=== PATIENT | female | born 1980 | race Caucasian/White ===

== ENCOUNTER → 2017-03-14 | Outpatient (CLI) | payer OTHER ==
[~2017-03-14] MED LIST: IBUP-1050 PO; LEVO125T72 PO; LEVO137T3 PO; OXYC-57 PO
[2017-03-14 10:05] LABS: THYROID STIMULATING HORMONE 0.012 uIu/ml (0.300-4.500)
== END | disposition home or self-care (01) ==
LOC: C.LAB1850 06:59
PROVIDERS: ATTEND Internal Medicine Endocrinology, Diabetes & Metabolism
DX: E89.0 Postprocedural hypothyroidism (principal)

== ENCOUNTER → 2017-04-10 | Outpatient (CLI) | payer OTHER ==
[~2017-04-10] MED LIST changes: -OXYC-57 PO
[2017-04-10 09:58] LABS: THYROID STIMULATING HORMONE 0.509 uIu/ml (0.300-4.500)
== END | disposition home or self-care (01) ==
LOC: C.LAB1850 07:11
PROVIDERS: ATTEND Internal Medicine Endocrinology, Diabetes & Metabolism
DX: E89.0 Postprocedural hypothyroidism (principal)

== ENCOUNTER 2017-05-29 11:10 | Emergency (ER) | payer OTHER ==
[~2017-05-29] VITALS: Ht 162.6 cm; Wt 69.3 kg
[~2017-05-29 11:10] MED LIST changes: -LEVO125T72 PO
[2017-05-29 11:12] VITALS: TEMP 36.7; Ht 162.6 cm; Wt 69.3 kg
[2017-05-29] MEDS ORDERED: LEVO125T72 PO (11:26)
[2017-05-29] MEDS ORDERED: DiphenhydrAMINE HCL 50 MG/ML VIAL IV STA (11:57)
[2017-05-29] MEDS ORDERED: SODIUM CHLORIDE 0.9% 1000ML 1,000 ML IV STA (11:57)
[2017-05-29] MEDS ORDERED: KETOROLAC TROMETHAMINE 30 MG/ML VIAL IV STA (11:57)
[2017-05-29] MEDS ORDERED: PROCHLORPERAZINE 5 MG/ML 2 ML VIAL IV STA (11:57)
--- NOTE | 2017-05-29 12:46 | EMERGENCY ROOM VISIT NOTE ---
History Report prepared by Isrrael: Crissy Monahan Under the Supervision of: Dr. Josh Luque M.D. First contact with patient: 11:31 Chief Complaint: HEAD PAIN Stated Complaint: HEAD PAIN,LEFT EYE BLURRY History of Present Illness The patient is a 37 year old female who presents to the Emergency Room with complaints of intermittent head pain for the past couple of days. The patient has a history of migraine headaches. She had a migraine headache with aura a couple of days ago that she states was just like her typical migraine headaches. Two days ago she had pain in the back of her head that was worse with palpation. Yesterday she had sharp pain on the side of her head that has resolved. She states that her vision is "OK but something feels off." She notes some feeling of pressure in her head. The patient denies any recent trauma or injury to her head. She denies cough, fever, chills, diarrhea, and chance of . She does not take any estrogen. She denies any recent visits to the chiropractor. She follows-up with her PCP for her migraines. She was told that she did not need to see a neurologist, because she does not have migraines often enough. The patient has never had any imaging of her head. Source of History: patient Onset: a couple of days ago Position: head Symptom Intensity: mild Quality: pressure, sharp Timing: intermittent Associated Symptoms: No fevers, No chills, No cough, No diarrhea Review of Systems See HPI for pertinent positives & negatives. A total of 10 systems reviewed and were otherwise negative. Past Medical & Surgical Medical Problems: (1) Migraine headache Family History Cancer Diabetes mellitus Hypertension Social History Smoking Status: Former Smoker Smokeless Tobacco Use: No Alcohol Use: occasionally Marital Status: Housing Status: lives with family Occupation Status: employed Current/Historical Medications Scheduled Ibuprofen (Advil), 400 MG PO PRN Levothyroxine Sodium (Synthroid), 125 MCG PO DAILY Allergies Coded Allergies: No Known Allergies (Unverified , 05/29/17) Physical Exam Vital Signs Date Time Temp Pulse Resp B/P (MAP) Pulse Ox O2 Delivery O2 Flow Rate FiO2 05/29/17 13:10 75 16 122/79 99 Room Air 05/29/17 11:12 36.7 87 16 156/81 97 Room Air Physical Exam GENERAL: Patient is a healthy-appearing well-nourished 37 year old female. HEAD: Normocephalic atraumatic EYES: Ocular movements intact pupils equal and react to light OROPHARYNX mucous membranes are moist no exudates present no erythema or edema present NECK: Supple no nuchal rigidity, no evidence of meningitis or encephalitis on exam CHEST: Good equal expansion LUNGS: Clear and equal to auscultation CARDIAC: Normal S1 and S2 ABDOMEN: Soft nontender no guarding BACK: No CVA tenderness EXTREMITIES: No pain upon palpation normal muscle strength in all groups no clubbing cyanosis or edema NEURO: Patient is following commands and answering questions appropriately. Alert and oriented x3 Cranial Nerves 2-12 grossly intact Medical Decision & Procedures ER Provider Diagnostic Interpretation: Radiology results as stated below per my review and radiologist interpretation: HEAD WITHOUT CONTRAST (CT) CLINICAL HISTORY: 37 years-old Female presenting with left-sided blurred vision and head pain. TECHNIQUE: Multidetector CT imaging of the head was performed without the use of intravenous contrast. IV contrast: None. A dose lowering technique was used consistent with the principles of ALARA (as low as reasonably achievable). COMPARISON: None. CT DOSE (mGy.cm): The estimated cumulative dose is 537.48 mGy.cm. 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 Ventricles and sulci normal in size. Brain parenchyma normal in appearance with preserved larsen-white differentiation. No mass effect or midline shift. No hemorrhage or acute territorial infarct. No extra-axial fluid collection. Paranasal sinuses and mastoid air cells clear. Calvarium intact. IMPRESSION: 1. No acute intracranial pathology. Electronically signed by: Tae Wu M.D. 05/29/2017 1:11 PM Dictated Date/Time: 05/29/2017 1:08 PM Medications Administered Medications (Trade) Dose Ordered Sig/Marleny Route Start Time Stop Time Status Last Admin Dose Admin Sodium Chloride 1,000 ml @ 999 mls/hr Q1H1M STAT IV 05/29/17 11:57 05/29/17 12:57 DC 05/29/17 11:57 999 MLS/HR Ketorolac Tromethamine (Toradol Inj) 30 mg NOW STAT IV 05/29/17 11:57 05/29/17 11:59 DC 05/29/17 12:08 30 MG Prochlorperazine Edisylate (Compazine Inj) 10 mg NOW STAT IV 05/29/17 11:57 05/29/17 11:59 DC 05/29/17 12:08 10 MG Diphenhydramine HCl (Benadryl Inj) 50 mg NOW STAT IV 05/29/17 11:57 05/29/17 11:59 DC 05/29/17 12:07 50 MG ED Course 1135: Past medical records reviewed. The patient was evaluated in room C1B. A complete history and physical examination was performed. 1157: Benadryl 50 mg IV, Compazine 10 mg IV, Toradol 30 mg IV, NSS 1000 ml @ 999 mls/hr IV 1321: I reassessed the patient at this time. She is feeling better and resting comfortably. I discussed the results and treatment plan with the patient. I answered all pertaining questions that she had. She expressed understanding and verbalized agreement. The patient will be discharged home. Medical Decision Etiologies such as migraine headache, meningitis, sinusitis, CO exposure, ICH, SAH, infection, tumor, headache, sinus thrombosis, arterial dissection, as well as others were entertained. This is a 37-year-old female who presents emergency department complaining of a migraine headache. The patient reports she has had migraines like this in the past. I will note she is afebrile and has no evidence of meningitis or encephalitis on examination. For this reason I felt that the patient could be conservatively treated. She was sent for a CAT scan of the head as she has never had imaging of her head. For this reason IV was established, the patient was given normal saline bolus, Toradol, Compazine, Benadryl. Repeat examination revealed improvement patient's symptoms. Medication Reconcilliation Current Medication List: was personally reviewed by me Blood Pressure Screening Patient's blood pressure: Elevated blood pressure Blood pressure disposition: Referred to PCP Impression Primary Impression: Headache Scribe Attestation The scribe's documentation has been prepared under my direction and personally reviewed by me in its entirety. I confirm that the note above accurately reflects all work, treatment, procedures, and medical decision making performed by me. Departure Information Dispostion Home / Self-Care Referrals Charley Mena M.D. (PCP) Forms HOME CARE DOCUMENTATION FORM, IMPORTANT VISIT INFORMATION, WORK / SCHOOL INSTRUCTIONS Patient Instructions ED Headache Migraine, Headache Pain, My [facility] Additional Instructions You were found to have an elevated blood pressure today (>120 sytolic or >90 diastolic). Per medicare guidelines, you need to follow up with this blood pressure screening with your Primary Care Physician (PCP). For a new PCP call [phone]. You have been examined and treated today on an emergency basis only. This is not a substitute for, or an effort to provide, complete comprehensive medical care. It is impossible to recognize and treat all injuries or illnesses in a single emergency department visit. It is therefore important that you follow up closely with Dr Mena. Call as soon as possible for an appointment. Thank you for your time and consideration. I look forward to speaking with you again soon. Please don't hesitate to call us if you have any questions. Problem Qualifiers Primary Impression: Headache Headache type: unspecified Headache chronicity pattern: acute headache Intractability: not intractable Qualified Codes: R51 - Headache
[2017-05-29 13:10] VITALS: BP 122/79; PULSE 75; O2SAT 99
--- NOTE | 2017-05-29 13:12 | DIAGNOSTIC IMAGING REPORT ---
HEAD WITHOUT CONTRAST (CT) CLINICAL HISTORY: 37 years-old Female presenting with left-sided blurred vision and head pain. TECHNIQUE: Multidetector CT imaging of the head was performed without the use of intravenous contrast. IV contrast: None. A dose lowering technique was used consistent with the principles of ALARA (as low as reasonably achievable). COMPARISON: None. CT DOSE (mGy.cm): The estimated cumulative dose is 537.48 mGy.cm. 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 Ventricles and sulci normal in size. Brain parenchyma normal in appearance with preserved larsen-white differentiation. No mass effect or midline shift. No hemorrhage or acute territorial infarct. No extra-axial fluid collection. Paranasal sinuses and mastoid air cells clear. Calvarium intact. IMPRESSION: 1. No acute intracranial pathology. Electronically signed by: Tae Wu M.D. 05/29/2017 1:11 PM Dictated Date/Time: 05/29/2017 1:08 PM
== END 2017-05-29 13:38 | disposition home or self-care (01) ==
LOC: C.EDB 11:11 → C.EDC 13:38
DX: R51 Headache (principal); Z87.891 Personal history of nicotine dependence; Z83.3 Family history of diabetes mellitus; Z82.49 Family history of ischemic heart disease and other diseases of the circulatory system

== ENCOUNTER → 2017-10-10 | Outpatient (CLI) | payer OTHER ==
[~2017-10-10] MED LIST changes: +LEVO125T72 PO; -LEVO137T3 PO
== END | disposition home or self-care (01) ==
LOC: C.PAPS 17:38
PROVIDERS: ATTEND Obstetrics & Gynecology
DX: Z12.4 Encounter for screening for malignant neoplasm of cervix (principal)

== ENCOUNTER → 2017-11-08 | Outpatient (CLI) | payer OTHER | END | disposition home or self-care (01) | LOC: C.LAB1850 17:05 | PROVIDERS: ATTEND Internal Medicine Endocrinology, Diabetes & Metabolism | DX: E05.00 Thyrotoxicosis with diffuse goiter without thyrotoxic crisis or storm (principal); E89.0 Postprocedural hypothyroidism ==

== ENCOUNTER → 2018-01-15 | Outpatient (CLI) | payer OTHER | END | disposition home or self-care (01) | LOC: C.LAB1850 07:13 | PROVIDERS: ATTEND Internal Medicine Endocrinology, Diabetes & Metabolism | DX: E89.0 Postprocedural hypothyroidism (principal) ==

== ENCOUNTER → 2018-06-27 | Outpatient (CLI) | payer OTHER ==
[2018-06-27 12:18] LABS: BASO % 0.6 %; BASO ABS # 0.04 K/uL (0-0.2); EOS % 4.3 %; EOS ABS # 0.28 K/uL (0-0.5); HEMOGLOBIN 12.4 g/dL (12.0-16.0); IG# 0.02 K/uL (0.00-0.02); LYMPH % 40.9 %; LYMPH ABS # 2.69 K/uL (1.2-3.4); MEAN CELL VOLUME 88.5 fL (80-100); MEAN CORPUSCULAR HEMOGLOBIN 29.7 pg (25-34); MEAN CORPUSCULAR HGB CONC 33.5 g/dl (32-36); MEAN PLATELET VOLUME 10.6 fL (7.4-10.4); MONO % 5.2 %; MONO ABS # 0.34 K/uL (0.11-0.59); NEUT % 48.7 %; PLATELET COUNT 269 K/uL (130-400); RED CELL DISTRIBUTION WIDTH CV 12.7 % (11.5-14.5); RED CELL DISTRIBUTION WIDTH SD 40.6 fL (36.4-46.3); WHITE BLOOD COUNT 6.57 K/uL (4.8-10.8)
--- NOTE | 2018-06-27 12:31 | DIAGNOSTIC IMAGING REPORT ---
RIGHT NECK ULTRASONOGRAPHY CLINICAL HISTORY: CERVICAL LYMPHADENOPATHY COMPARISON STUDY: No previous studies for comparison. FINDINGS: A right neck ultrasound study was performed targeted to the area of palpable abnormality. The palpable abnormality corresponds to an architecturally unremarkable 10 x 9 x 6 mm right submandibular lymph node. Additional deeper cervical lymph nodes are visualized measuring up to 15 mm in long axis. Clinical follow-up is advocated. IMPRESSION: The palpable abnormality corresponds to a 10 x 9 x 6 mm right submandibular lymph node. Electronically signed by: Kade Pennington M.D. 06/27/2018 12:30 PM Dictated Date/Time: 06/27/2018 12:26 PM
== END | disposition home or self-care (01) ==
LOC: C.ULTR 11:10
PROVIDERS: ATTEND Internal Medicine
DX: R59.0 Localized enlarged lymph nodes (principal)

== ENCOUNTER 2024-06-14 00:53 | Observation (INO) ==
--- NOTE | 2024-06-14 01:09 | Emergency Department Note ---
History of Present Illness General Chief complaint: Shortness of Breath/Dyspnea Stated complaint: sob Time Seen by Provider: 06/14/24 00:56 History of Present Illness This 44-year-old female presents ER with her for evaluation of increasing shortness of breath and chest tightness for the past few weeks. She has seen her family doctor and had extensive outpatient testing and recent had an echo and found to have a leaky valve per patient. Patient states her breathing got acutely worse tonight and this prompted her to come in. Patient states she was laying in to get a bed and felt like she could not catch her breath. Patient denies fever, chills, abdominal pain, leg pain or swelling. No prior heart disease. No history of blood clots. She does not smoke. Home Medications Medication Instructions Recorded Confirmed Type albuterol sulfate 90 mcg/actuation 2 puff inhalation Q4 PRN Shortness 11/17/23 06/14/24 History aerosol inhaler Of Breath Or Wheezing levothyroxine 112 mcg tablet 112 mcg PO DAILYBB 06/14/24 06/14/24 History (Synthroid) omeprazole 20 mg capsule,delayed 20 mg PO QAM 06/14/24 06/14/24 History release Allergies Allergy/AdvReac Type Severity Reaction Status Date / Time No Known Drug Allergies Allergy Unknown Verified 06/14/24 02:53 Past Med/Surg History Problem List (Updated 06/14/24 @ 02:43 by Jannet Castillo PA-C) Acute dyspnea (Acute) Chest pain (Acute) Hypothyroidism, postablative (Acute) Endometriosis (Acute) Migraine headache (Chronic) Headache (Acute) Medical History Graves disease Cyst of left ovary Surgical History History of left oophorectomy H/O bilateral salpingectomy History of endometrial ablation History of dilation and curettage Family History Grandmother (Maternal) Cervical cancer Grandfather (Paternal) Colorectal cancer Grandfather (Maternal) Colorectal cancer Father Diabetes Hypertension Grandmother (Paternal) Diabetes Father Colorectal cancer Mother Hyperlipidemia Hypertension Aunt Cervical cancer maternal Sister Cerebral aneurysm 38 yo patient evaluated with mri/ct and negative. Denies family history of Breast cancer Social History Smoking Status: Never smoker Do You Dip or Chew Tobacco: No; Hx Alcohol Use: Yes Alcohol Intake Frequency Comment: socially Preferred Language: Kinyarwanda Feels Safe at Home: Yes Review of Systems A total of 10 systems reviewed and were otherwise negative Physical Exam Vital Signs Vital Signs - 24 hr 06/14/24 00:54 06/14/24 00:55 06/14/24 01:06 Temperature 36.4 C L Temperature Source Temporal Artery Scan Pulse Rate 85 Pulse Rate [Apical] Pulse Rhythm Pulse Rhythm [Apical] Pulse Strength [Apical] Respiratory Rate 18 Respiratory Effort / Characteristics Non-Labored Spontaneous Short of Breath Respiratory Depth Normal Normal Respiratory Pattern Regular Regular Blood Pressure 164/86 H Blood Pressure [Right Arm] Blood Pressure Mean 112 Blood Pressure Mean [Right Arm] Blood Pressure Position Sitting Blood Pressure Position [Right Arm] Pulse Oximetry 100 100 Oxygen Delivery Method Room Air Room Air Room Air Sepsis Recent Fever Within 48 Hours No Sepsis New/Unexplained Change in Mental Status N/A Sepsis Action Taken by Nursing No Action Required 06/14/24 01:06 06/14/24 01:06 06/14/24 01:08 Temperature Temperature Source Pulse Rate 70 70 Pulse Rate [Apical] 70 Pulse Rhythm Regular Pulse Rhythm [Apical] Regular Pulse Strength [Apical] Normal Respiratory Rate 18 18 Respiratory Effort / Characteristics Non-Labored Spontaneous Respiratory Depth Normal Respiratory Pattern Regular Blood Pressure Blood Pressure [Right Arm] 151/98 H Blood Pressure Mean Blood Pressure Mean [Right Arm] 115 Blood Pressure Position Blood Pressure Position [Right Arm] Lying Pulse Oximetry 100 100 Oxygen Delivery Method Room Air Room Air Sepsis Recent Fever Within 48 Hours Sepsis New/Unexplained Change in Mental Status Sepsis Action Taken by Nursing 06/14/24 03:00 Temperature Temperature Source Pulse Rate Pulse Rate [Apical] 68 Pulse Rhythm Pulse Rhythm [Apical] Regular Pulse Strength [Apical] Normal Respiratory Rate 18 Respiratory Effort / Characteristics Non-Labored Spontaneous Respiratory Depth Normal Respiratory Pattern Regular Blood Pressure Blood Pressure [Right Arm] 138/90 Blood Pressure Mean Blood Pressure Mean [Right Arm] 106 Blood Pressure Position Blood Pressure Position [Right Arm] Lying Pulse Oximetry 99 Oxygen Delivery Method Room Air Sepsis Recent Fever Within 48 Hours Sepsis New/Unexplained Change in Mental Status Sepsis Action Taken by Nursing VITALS: Vitals are noted on the nurse's note and reviewed by myself. Vital signs stable. GENERAL: Pleasant patient, in no acute distress, nondiaphoretic, well-developed well-nourished. SKIN: Capillary reflex less than 2 seconds. HEENT: Normocephalic. PERRLA. EOMI. Nares patent. Mucous membranes moist. Neck is supple without nuchal rigidity. HEART: Regular rate and rhythm LUNGS: Clear to auscultation bilaterally without wheezes, rales or rhonchi. No retractions or accessory muscle use. ABDOMEN: Positive bowel sounds x 4. Normal tympanic percussion. Soft, nontender, without masses or organomegaly. Mello sign negative. No guarding or rebound tenderness. no CVA tenderness MUSCULOSKELETAL: No gross musculoskeletal defects. NEURO: Patient was alert and oriented to person place and time. No focal neurological deficits. Course Administered Medications Discontinued Medications Ioversol (Optiray 320 125ml) 125 ml IV ONCE ONE Stop: 06/14/24 01:22 Last Admin: 06/14/24 01:21 Dose: 118 ml Documented By: JESSICA Medical Decision Making Medical Records Attestation: I reviewed the patient's medical records. Home Medications Current Medication List: was personally reviewed by me Laboratory Data Attestation: I reviewed the patient's lab results. 06/14/24 01:09 06/14/24 01:09 Lab Results 06/14/24 06/14/24 Range/Units 01:09 01:13 WBC 7.35 (4.8-10.8) K/ul RBC 4.35 (4.20-5.40) M/uL Hgb 12.8 (12.0-16.0) g/dl POC Hgb 12.9 (12.0-16.0) g/dl Hct 38.4 (37.0-47.0) % POC Hct 38 (37-47) % MCV 88.3 (80.0-100.0) fL MCH 29.4 (25.0-34.0) pg MCHC 33.3 (32.0-36.0) g/dL RDW Std Deviation 40.9 (36.4-46.3) fL RDW Coeff of Reyes 12.7 (11.5-14.5) % Plt Count 331 (130-400) K/uL MPV 10.5 (9.4-12.4) fL Immature Gran % (Auto) 0.3 % Neut % (Auto) 55.2 % Lymph % (Auto) 34.4 % [place] % (Auto) 5.2 % Eos % (Auto) 3.8 % Baso % (Auto) 1.1 % Neut # (Auto) 4.06 (1.40-6.50) K/uL Lymph # (Auto) 2.53 (1.20-3.40) K/uL [place] # (Auto) 0.38 (0.11-0.59) K/uL Eos # (Auto) 0.28 (0.00-0.50) K/uL Baso # (Auto) 0.08 (0.00-0.20) K/uL Immature Gran # (Auto) 0.02 (0.01-0.20) K/uL POC Sodium 141 (135-144) mmol/L Sodium 139 (136-145) mmol/L POC Potassium 3.1 L (3.3-5.0) mmol/L Potassium 3.3 L (3.5-5.1) mmol/L POC Chloride 106 (101-112) mmol/L Chloride 107 (98-107) mmol/L Carbon Dioxide 23 (21-32) mmol/L POC Total CO2 21 L (24-31) mmol/L Anion Gap 9 (3-11) POC Anion Gap 18.0 (16-25) mmol/L POC BUN 8 (7-18) mg/dl BUN 9 (6-23) mg/dl Creatinine 0.68 (0.6-1.2) mg/dl POC Creatinine 0.7 (0.6-1.3) mg/dl Est Cr Clr Drug Dosing 107.2 ml/min Est GFR ( Amer) 123.3 ml/min Est GFR (Non-Af Amer) 106.4 ml/min BUN/Creatinine Ratio 13.2 (10-20) Glucose 113 H (70-99(Fasting)) mg/dl POC Glucose (other) 112 H (70-99) mg/dl Calcium 9.1 (8.6-10.3) mg/dl POC Ioniz Calcium Rafael 1.12 (1.12-1.32) mmol/l Magnesium 2.1 (1.7-2.4) mg/dl Total Bilirubin 0.3 (0.2-1.0) mg/dl AST 15 (13-39) U/L ALT 12 (7-52) U/L Alkaline Phosphatase 60 (34-104) U/L Troponin I High Sens < 2.3 (0-14) pg/ml B-Natriuretic Peptide 15 (0-100) pg/ml Total Protein 7.3 (6.0-8.3) gm/dl Albumin 4.6 (3.4-5.0) gm/dl Globulin 2.7 (2.5-4.0) gm/dl Albumin/Globulin Ratio 1.7 (0.9-2) Imaging Data Attestation: I personally reviewed and interpreted this imaging study as follows: Radiologist's Impression: Chest CTA 06/14/24 01:06 Exam(s): CTA CHEST IV Amt: 118 ML OPTIRAY 320 EXAM: CT Angiography Chest With Intravenous Contrast CLINICAL HISTORY: Reason for exam: Dyspnea. TECHNIQUE: Axial computed tomographic angiography images of the chest with intravenous contrast. Automated exposure control was utilized for the study. A dose lowering technique was utilized adhering to the principles of ALARA. MIP reconstructed images were created and reviewed. COMPARISON: No relevant prior studies available. FINDINGS: Pulmonary arteries: Unremarkable. No pulmonary embolism. Aorta: No acute findings. No thoracic aortic aneurysm. Lungs: Unremarkable. No mass. No consolidation. Pleural space: Unremarkable. No significant effusion. No pneumothorax. Heart: Unremarkable. No cardiomegaly. No significant pericardial effusion. No evidence of RV dysfunction. Bones/joints: No acute fracture. No dislocation. Soft tissues: Unremarkable. Lymph nodes: Unremarkable. No enlarged lymph nodes. IMPRESSION: Normal chest CTA. No pulmonary embolism. Electronically signed by: Nikita Don MD 06/14/24 03:[address] [facility] Narrative Prior records/ancillary studies reviewed. Triage Nursing notes reviewed. Additional history obtained from the family. The patient's history was concerning for respiratory difficulties. Differential diagnosis: Etiologies such as infections, reactive airway disease, pneumonia, pneumothorax, COPD, CHF, cardiac ischemia, pulmonary embolism, musculoskeletal, gastrointestinal, as well as others were entertained. Physical examination: As above. ER treatment provided: An order was placed for continuous cardiac monitoring. The monitor shows a rate of 60-100 with a sinus rhythm per my interpretation. Patient was observed On reassessment the patient felt better. Diagnostic interpretation by me: The electrocardiogram was ordered for SOB. ECG: Normal sinus, normal intervals, no acute ST-T changes. Impression normal sinus rhythm independently interpreted myself The labs Independently Interpreted by myself revealed negative troponin. Negative BNP Imaging studies: CTA as above HEART SCORE: Hx: high/mod/low suspicion: 0 ECG: ST depression/nonspecific changes/normal: 0 Age: Greater than 65/45-64/less than 45: 0 Risk factors: (Hypertension, hyperlipidemia, diabetes, coronary disease, tobacco use, cocaine use): 0 Troponin: Greater than 2 times normal limits/1-2 times normal limits/normal: 0 Total: 0 Consultation: A consultation was placed with the hospitalist. The case was discussed and diagnostics were reviewed. The patient was evaluated in the ER for further treatment. This appears to be consistent with chest pain and dyspnea with unclear etiology. Low heart score. First troponin is negative. EKG nonischemic. CTA was reviewed and read by radiology as above. Medicine was consulted Case discussed. Patient will be evaluated for possible admission.. By the evaluation outlined above emergent etiologies such as CHF, pulmonary embolism, reactive airway disease, pneumonia, pneumothorax, musculoskeletal, serious bacterial infections, as well as others were deemed relatively unlikely. The pt informed about the findings as listed above. All questions were answered and pleased with the treatment. The chart was completed utilizing [employer] Speech voice recognition software. Grammatical errors, random word insertions, pronoun errors, and incomplete sentences are an occassional consequence of this system due to software limitations, ambient noise, and hardware issues. Any formal questions or concerns about the content, text, or information contained within the body of this dictation should be directly addressed to the physician it administrative assistant for clarification. Impression & Plan Chest pain, Acute dyspnea Discharge Plan Visit Data Chief Complaint: Shortness of Breath/Dyspnea Stated Complaint: sob ED Provider: Celena Chirinos ED Midlevel Provider: Jannet Castillo Discharge Problem: Chest pain, Acute dyspnea Patient Disposition: Being Evaluated by Hospitalist Condition: Good Forms Stand Alone Forms: My [employer] Prescriptions Prescriptions: No Action albuterol sulfate 90 mcg/actuation HFA aerosol inhaler 2 puff inhalation Q4 PRN (Reason: Shortness Of Breath Or Wheezing) levothyroxine [Synthroid] 112 mcg tablet 112 mcg PO DAILYBB omeprazole 20 mg capsule,delayed release(DR/EC) 20 mg PO QAM Rx Instructions: take 30 min prior to breakfast Referrals Referrals: Charley Mena MD [Primary Care Provider] - Discharge Problem: Chest pain Qualifiers: Chest pain type: unspecified Qualified Code(s): R07.9 - Chest pain, unspecified
[2024-06-14] MEDS: OPTIRAY 320 125ml IV ONE (01:21)
[2024-06-14 01:25] LABS: Basophils # (auto) 0.08 K/uL (0.00-0.20); Basophils % (auto) 1.1 %; Eosinophils # (auto) 0.28 K/uL (0.00-0.50); Eosinophils % (auto) 3.8 %; Hematocrit (blood only) 38.4 % (37.0-47.0); Hemoglobin 12.8 g/dl (12.0-16.0); Immature Granulocytes # (auto) 0.02 K/uL (0.01-0.20); Immature Granulocytes % (auto) 0.3 %; Lymphocytes # (auto) 2.53 K/uL (1.20-3.40); Lymphocytes % (auto) 34.4 %; Mean Corpuscular Hemoglobin 29.4 pg (25.0-34.0); Mean Corpuscular Hgb Conc 33.3 g/dL (32.0-36.0); Mean Corpuscular Volume 88.3 fL (80.0-100.0); Mean Platelet Volume 10.5 fL (9.4-12.4); Monocytes # (auto) 0.38 K/uL (0.11-0.59); Monocytes % (auto) 5.2 %; Neutrophils # (auto) 4.06 K/uL (1.40-6.50); Neutrophils % (auto) 55.2 %; Platelet Count 331 K/uL (130-400); RDW Coefficient of Variation 12.7 % (11.5-14.5); RDW Standard Deviation 40.9 fL (36.4-46.3); Red Blood Count 4.35 M/uL (4.20-5.40); White Blood Count 7.35 K/ul (4.8-10.8)
[2024-06-14 01:26] LABS: iSTAT Creatinine 0.7 mg/dl (0.6-1.3); iSTAT Hemoglobin 12.9 g/dl (12.0-16.0); iSTAT Ionized Calcium 1.12 mmol/l (1.12-1.32); iSTAT Potassium 3.1 mmol/L (3.3-5.0)
[2024-06-14 02:18] LABS: Albumin Level 4.6 gm/dl (3.4-5.0); Anion Gap 9 (3-11); Bilirubin,Total 0.3 mg/dl (0.2-1.0); Calcium 9.1 mg/dl (8.6-10.3); Carbon Dioxide 23 mmol/L (21-32); Chloride 107 mmol/L (98-107); Magnesium 2.1 mg/dl (1.7-2.4); Potassium 3.3 mmol/L (3.5-5.1); Sodium 139 mmol/L (136-145)
[2024-06-14 02:24] LABS: Alanine Aminotransferase 12 U/L (7-52); Albumin Globulin Ratio 1.7 (0.9-2); Alkaline Phosphatase 60 U/L (34-104); Aspartate Aminotransferase 15 U/L (13-39); BUN Creatinine Ratio 13.2 (10-20); Blood Urea Nitrogen 9 mg/dl (6-23); Creatinine Clr Calc Pharmacy 107.2 ml/min; Est GFR (African American) 123.3 ml/min; Est GFR (Non-African American) 106.4 ml/min; Globulin 2.7 gm/dl (2.5-4.0); Glucose 113 mg/dl (70-99(Fasting)); Total Protein 7.3 gm/dl (6.0-8.3)
[2024-06-14 02:30] LABS: Troponin I High Sensitivity < 2.3 pg/ml (0-14)
--- OUTSIDE RECORDS SUMMARY | 2024-06-14 02:43 | External Medical Summary ---
Author Name Unknown Address Unknown Organization [id number]:[facility] [place] [address] [facility] [address] Laboratory Report Ordering Provider Test Date Status LEON PINK 05/30/2024 15:01:58 Final Observation Date Value Abnormality Reference (Units ) Status TSH 05/30/2024 15:01:58 1.38 0.27-4.20 (uIU/mL) Final Performing Location [facility] - [address] [facility] [id number]
--- OUTSIDE RECORDS SUMMARY | 2024-06-14 02:43 | External Medical Summary | Summary of Care ---
Author Name Unknown Organization [facility] Address [address] [place] [address] Phone [phone] Care Team Providers Care Food Taster Name Role Phone Charley Mena MD Primary Care Provider [phone] Encounter Details Date Type Department Care Team (Late st Contact Info) Description 01/12/2024 11:00 AM EST Nurse Only Ancillary [facility] [place] [address] [facility] [place] [address] Nurse, Int Med [address] [place] [address] Arrived Allergies No known active allergiesdocumented as of this encounter (statuses as of 01/12/2024) Medications Medication Sig Dispensed Refills Start Date End Date Status Meclizine HCl 25 MG Oral Tablet (Antivert)Indicatio ns:Benign paroxysmal vertigo of left ear Take 1 Tab by mouth 3 times a day as needed for Dizziness. 30 Tab 1 05/07/2021 Active Synthroid 112 MCG Oral Tablet Take daily 0 03/12/2022 Active Amitriptyline HCl 10 MG Oral Tablet (Elavil)Indications :Migraine with aura and without status migrainosus, not intractable,MYRTLE (generalized anxiety disorder),Insomnia, unspecified type Take 2 Tablets by mouth at bedtime. 180 Tablet 3 05/25/2023 Active Albuterol Sulfate 108 (90 Base) MCG/ACT Inhalation Aerosol Powder Breath ActivatedIndication s:Wheezing Inhale 2 Puffs by mouth 4 times a day as needed for Other (chest tightness). 18 Each 2 11/30/2023 Active Fluticasone Propionate 50 MCG/ACT Nasal SuspensionIndicatio ns:Acute sinusitis, recurrence not specified, unspecified location Administer 2 Sprays into each nostril in the morning. 16 mL 5 11/30/2023 Active Cyclobenzaprine HCl 5 MG Oral Tablet (Flexeril)Indicatio ns:Neck muscle spasm Take 1 Tablet by mouth at bedtime as needed for Muscle spasms. 30 Tablet 5 12/05/2023 Active documented as of this encounter (statuses as of 01/12/2024) Active Problems Problem Noted Date Diagnosed Date Allergic rhinitis due to animal hair and dander 05/07/2021 Eustachian tube dysfunction, left 05/07/2021 MYRTLE (generalized anxiety disorder) 08/03/2017 Overview: Doing well off of medication Vitamin D deficiency 07/10/2012 Post thyroiditis 07/10/2012 ADVANCE DIRECTIVE INFORMATION 02/10/2012 Overview: No, Advance Directive brochure offered , patient declined. Migraine with aura and witho ut status migrainosus, not intractable documented as of this encounter (statuses as of 01/12/2024) Resolved Problems Problem Noted Date Diagnosed Date Resolved Date Acute bronchospasm 03/27/2020 2 Hyperthyroidism 05/29/2012 01/15/2016 Unusually large fetus causin g disproportion, antepartum 01/01/2012 03/28/2012 Overview: As of 11/29/11 pt noted to have an EFW of 84% with an ELIZABETH of 27. As of 12/28/11 at 32 4/7 weeks gestation, an EFW of 2404 grams (89%) is noted with an ELIZABETH of 23. Given these findings, a f/u EFW in 6 weeks is recommended, to which the pt has agreed. Abnormality in heart r ate/rhythm, antepartum condition or complication 12/30/2011 Overview: Pt is s/p MFM recommendation to undergo 2x/week FHTs in office given this assessment. If irreg, then NST. If tachycardic on NST, then call MFM. As of 12/28/11 at 32 4/7 weeks gestation during a f/u MFM visit, this finding continues to be seen intermittently and appears to be most consistent with benign PAC's. uterine contractions, antepartum 12/30/2011 03/28/2012 Overview: FFN negative 12/30. Urine C/S neg. Celestone 12 mg given. Terb @ 32w 6 d[address] Procardia started per Dr. Frias. Alcohol ingestion, more than 4 drinks/day on alcohol screening 10/04/2011 03/28/2012 Overview: Pt has undergone a echo which does not demonstrate findings suggestive of a cardiac abnormality. ADVANCE DIRECTIVE INFORMATION 11/04/2010 11/04/2010 Overview: No, Advance Directive brochure offered , patient declined. Twin , antepartum 11/04/2010 1 Supervision of other high-risk 11/04/2010 03/28/2012 Overview: Patient recieved flu vaccine. 08/12/2011 Ariella King LPN MFM 11/29: Recommend follow up ultrasound with MFM in 4 weeks for growth and ELIZABETH secondary to LGA fetus and polyhydramnios. 12/28 U/S with MFM: nl ELIZABETH, EFW 89%. 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, and oligohydramnios of the other 11/04/2010 08/17/2011 documented as of this encounter (statuses as of 01/12/2024) Immunizations Name Administration Dates Next Due COVID-19 mRNA, LNP-s, No Pre serve, 2-Dose Series (Moderna) 12/15/2020,11/19/2020 COVID-19, mRNA, LNP-s, PF, B ooster, 100mcg/0.5mg (Moderna) 09/17/2021 Hepatitis B, 20+ yrs 01/12/2024,11/30/2023 Seasonal Influenza, Split, IIV3, With Preserve, Inj 08/12/2011 TDAP (age 10 and older)(Boostrix) 09/08/2022 TDAP (age 11 and older)(Adacel) 02/16/2012 documented as of this encounter Social History Tobacco Use Types Packs/Day Years Used Date Smoking Tobacco: Former Cigarettes 0.3 15 1 997 - 2011 Smokeless Tobacco: Never Comments:social smoker until knowledge of Alcohol Use Standard Drinks/Week Comments No 0 (1 standard drink = 0.6 oz pur e alcohol) socially PHQ-2 Answer Date Recorded PHQ Adult Total Score 0 05/25/2023 Hunger Vital Sign Answer Date Recorded Within the past 12 months, y ou worried that your food would run out before you got the money to buy more. Never true 05/25/20 23 Within the past 12 months, t he food you bought just didn't last and you didn't have money to get more. Never true 05/25/2023 Sex and Gender Information Value Date Recorded Sex Assigned at Female 08/16/2019 10:12 AM EDT Gender Identity Female 08/16/2019 10:12 AM EDT Sexual Orientation Straight 08/16/2019 10 :12 AM EDT Job Start Date Occupation Industry Not on file Not on file Not on file documented as of this encounter Nursing Notes * Bozena Palafox LPN - 01/12/2024 10:47 AM EST Pre-Administration Time Out Procedure Performed: Yes Patient Identified (Ask Name/Date of ): Yes Does the patient have a fever greater than 101 degrees today? No Patient allergic to latex? No Has the patient ever fainted after receiving an injection? No VFC Stock: No Immunization(s) verified: Yes, Immunization Name: Hep B, VIS Sheet(s) given: Yes Verified Side and Site: Yes Verified Shot(s) with Parent(s)/Patient: Yes documented in this encounter Plan of Treatment Upcoming Encounters Date Type Department Care Team (Late st Contact Info) Description 05/30/2024 2:00 PM EDT Office Visit General Internal Medicine [facility] [place] [address] [facility] [place] [address] Charley Mena MD 200 [facility] [place] [address] Health Maintenance Due Date Last Done Comments Hepatitis C Screening 01/08/1998 COVID-19 Vaccine (2022- season) 2023 09/17/2021, 12/15/2020, 11/19/2020 Influenza Vaccine (FLU shot) (#1) 2023 08/12/2011 Mammogram 12/16/2023 12/16/2022, 12/07, 12/09/2021, Additional history exists Depression Screening 05/25/2024 05/25/2023 Hepatitis B (3 of 3 - 19+ 3-dose series) 05/30/2024 01/12/2024, 11/30/2023 TSH 10/18/2024 10/18/2023, 08/08, 06/17/2022, Additional history exists Pap Smear 09/07/2025 09/07/2022, 10/06, 08/26/2016, Additional history exists Diabetes Screening 10/18/2026 10/18/2023, 1 12/19/2022, 08/16/2022, Additional history exists Cervical Cancer Screening 09/07/2027 HPV/Co-Test 09/07/2027 09/07/2022 Lipid Panel 10/18/2028 10/18/2023, 03/06, 07/03/2018, Additional history exists DTaP,Tdap,and Td Vaccines (3 - Td or Tdap) 09/08/2032 09/08/2022, 02/16/2012 GARDASIL-HPV IMMUNIZATION SERIES Aged Out No longer eligible based on patient's age to complete this topic MENINGOCOCCAL (MENACTRA/MENVEO) Aged Out No longer eligible based on patient's age to complete this topic Pneumococcal Vaccine: Pediatrics (0 to 5 Years) and At-Risk Patients (6 to 64 Years) Aged Out No longer eligible based on patient's age to complete this topic documented as of this encounter Medical Devices Not on filedocumented as of this encounter Visit Diagnoses Diagnosis Need for hepatitis B vaccination- Primary Need for prophylactic vaccination and inoculation against viral hepatitis documented in this encounter Care Teams Food Taster Relationship Specialty Start Date End Date Charley Mena MD [address] [place] [address] PCP - General Internal Medicine 05/21/12 documented as of this encounter
--- OUTSIDE RECORDS SUMMARY | 2024-06-14 02:43 | External Medical Summary | Summary of Care ---
Author Name Unknown Organization [facility] Address [address] [place] [address] Phone [phone] Care Team Providers Care Director Of Online Merchandising Name Role Phone Charley Mena MD Primary Care Provider [phone] Reason for Visit * Reason Onset Date Comments Order Request 02/26/2024 Encounter Details Date Type Department Care Team ([facility] Contact Info) Description 02/26/2024 Telephone General Internal Medicine [facility] [address] [place] [address] Charley Mena MD [address] [place] [address] Order Request Allergies No known active allergiesdocumented as of this encounter (statuses as of 02/26/2024) Medications Medication Sig Dispensed Refills Start Date [...] as of this encounter (statuses as of 02/26/2024) Active Problems Problem Noted Date Diagnosed Date [...] as of this encounter (statuses as of 02/26/2024) Resolved Problems Problem Noted Date Diagnosed Date [...] Overview: Patient recieved flu vaccine. 08/12/2011 Ariella King, CRICKET MFM 11/29: Recommend follow up ultrasound with MFM in 4 weeks for growth and ELIZABETH secondary to LGA fetus and polyhydramnios. 12/28 U/S with MFM: nl ELIZABETH, EFW 89%. 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 Pt reports no issues. Thank you documented in this encounter Plan of Treatment Upcoming Encounters Date Type Department Care Team (Late st Contact Info) Description 03/08/2024 7:15 AM EDT Imaging Radiology [facility] [place] [facility] [place] [address] 05/30/2024 2:00 PM EDT Office Visit General Internal Medicine [facility] [place] [address] [facility] [place] [address] Charley Mena MD 200 [facility] [place] [address] Scheduled Orders Name Type Priority Associated Diagnoses Orde r Schedule MAMMOGRAM SCREENING MIKI BILATERAL Medical Imaging Routine Encounter for screening mammogram for malignant neoplasm of breast Expected: 02/26/2024, Expires: 03/27/2025 Health Maintenance Due Date Last Done Comments Hepatitis C Screening 01/08/1998 COVID-19 Vaccine ( season) 2023 09/17/2021, 12/15/2020, 11/19/2020 Mammogram 12/16/2023 12/16/2022, 12/07, 12/09/2021, Additional history exists Depression Screening 05/25/2024 05/25/2023 Hepatitis B (3 of 3 - 19+ 3-dose series) 05/30/2024 01/12/2024, 11/30/2023 Influenza Vaccine (FLU shot) (Season Ended) 2024 08/12/2011 TSH 10/18/2024 10/18/2023, 08/08, 06/17/2022, Additional history [...] as of this encounter Visit Diagnoses Diagnosis Encounter for screening mammogram for malignant neoplasm of breast Other screening mammogram documented in this encounter Care Teams Director Of Online Merchandising Relationship Specialty Start Date End Date Charley Mena MD [address] [place] [address] PCP - General Internal Medicine 05/21/12 documented as of this encounter
--- OUTSIDE RECORDS SUMMARY | 2024-06-14 02:43 | External Medical Summary | Summary of Care ---
Author Name Unknown Organization [facility] Address [address] [place] [address] Phone [phone] Care Team Providers Care Solar Engineer Name Role Phone Charley Mena MD Primary Care Provider [phone] Reason for Visit * Reason Comments Outpatient Testing Encounter Details Date Type Department Care Team ([facility] st Contact Info) Description 05/30/2024 3:00 PM EDT Laboratory Laboratory [facility] [address] [place] [phone] [place], [facility] [address] [place] [address] Post thyroiditis; Encounter for HCV screening test for low risk patient; Chest heaviness Allergies No known active allergiesdocumented as of this encounter (statuses as of 05/30/2024) Medications Medication Sig Dispensed Refills Start Date End Date Status Meclizine HCl 25 MG Oral Tablet (Antivert)Indicatio ns:Benign paroxysmal vertigo of left ear Take 1 Tab by mouth 3 times a day as needed for Dizziness. 30 Tab 1 05/07/2021 Active Synthroid 112 MCG Oral Tablet Take daily 03/12/2022 Active Amitriptyline HCl 10 MG Oral [...] as of this encounter (statuses as of 05/30/2024) Active Problems Problem Noted Date Diagnosed Date [...] as of this encounter (statuses as of 05/30/2024) Resolved Problems Problem Noted Date Diagnosed Date [...] Patient recieved flu vaccine. 08/12/2011 Ariella King, DIRECTOR BUSINESS MANAGEMENT MFM 11/29: Recommend follow up ultrasound with MFM in 4 weeks for growth and ELIZABETH secondary to LGA fetus and polyhydramnios. 12/28 U/S with MFM: nl ELIZABETH, EFW 89%. 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 Never true 05/25/2023 Utilities Answer Date Recorded Do you have trouble paying y our heating, water, or electric bill? (Adult - for ages 18 years and over) Not on file 04/23/2024 Is your family able to pay t he heat, water, or electric bill? (Household - for ages 0-17 years) Not on file 04/23/2024 Does your family have access to good internet? (Household - for ages 0-17 years) Not on file 04/23/2024 Social Connections Answer Date Recorded How often do you feel lonely or isolated from those around you? (Adult - for ages 18 years and over) Not on file 04/23/2024 Sex and Gender Information Value Date Recorded Sex Assigned at Female 08/16/2019 10:12 AM EDT Gender Identity Female 08/16/2019 10:12 AM EDT Sexual Orientation Straight 08/16/2019 10 :12 AM EDT Job Start Date Occupation Industry Not on file Not on file Not on file documented as of this encounter Plan of Treatment Upcoming Encounters Date Type Department Care Team (Late st Contact Info) Description 06/10/2024 1:00 PM EDT Imaging Cardiac Studies, [facility] [address] [place] [address] Pending Results Name Type Priority Associated Diagnoses Date /Time TSH Lab Routine Post thyroiditis 05/30/2024 3:01 PM EDT HEPATITIS C ANTIBODY SCREEN WITH PROGRESSION TO HEPATITIS C RNA QUANTITATIVE Lab Routine Encounter for HCV screening test for low risk patient 05/30/2024 3:01 PM EDT D-DIMER Lab Routine Chest heaviness 05/30/2024 3:01 PM EDT HEPATITIS C ANTIBODY Lab Routine Encounter for HCV screening test for low risk patient 05/30/2024 3:01 PM EDT HEPATITIS C RNA ADD ON Lab Routine Encounter for HCV screening test for low risk patient 05/30/2024 3:01 PM EDT Health Maintenance Due Date Last Done Comments Hepatitis C Screening 01/08/1998 HPV/Co-Test 01/08/2010 COVID-19 Vaccine ( season) 2023 09/17/2021, 12/15/2020, 11/19/2020 Depression Screening 05/25/2024 05/25/2023 Influenza Vaccine (FLU shot) (#1) 2024 08/12/2011 TSH 10/18/2024 10/18/2023, 08/08, 06/17/2022, Additional history exists Mammogram 03/08/2025 03/08/2024, 12/07, 12/09/2021, Additional history exists Cervical Cancer Screening 09/07/2025 Pap Smear 09/07/2025 09/07/2022, 10/06, 08/26/2016, Additional history exists Diabetes Screening 10/18/2026 10/18/2023, 1 12/19/2022, 08/16/2022, Additional history exists Lipid Panel 10/18/2028 10/18/2023, 03/06, 07/03/2018, Additional history exists DTaP,Tdap,and Td Vaccines (3 - Td or Tdap) 09/08/2032 09/08/2022, 02/16/2012 Hepatitis B Vaccine Completed 05/30/2024, 01/12/2024, 11/30/2023 HPV (Gardasil) Vaccine Aged Out No lo nger eligible based on patient's age to complete [...] as of this encounter Visit Diagnoses Diagnosis Post thyroiditis Thyroid dysfunction, Encounter for HCV screening test for low risk patient Chest heaviness Other chest pain documented in this encounter Care Teams Solar Engineer Relationship Specialty Start Date End Date Charley Mena MD [address] [place] [address] PCP - General Internal Medicine 05/21/12 documented as of this encounter
--- OUTSIDE RECORDS SUMMARY | 2024-06-14 02:43 | External Medical Summary ---
Author Name Unknown Address Unknown Organization [id number]:LABORATORY [facility] - [address] [place] [address] Laboratory Report Ordering Provider Test Date Status LEON PINK 05/30/2024 15:01:58 Final Observation Date Value Abnormality Reference (Units ) Status Hep C Ab 05/30/2024 15:01:58 Negative Negative Final Further HCV quantitative yu ting not performed per protocol. Performing Location LABORATORY [facility] - [address] [place] [address]
--- OUTSIDE RECORDS SUMMARY | 2024-06-14 02:43 | External Medical Summary ---
Author Name Unknown Address Unknown Organization [id number][facility] [address] [facility] [id number] Laboratory Report Ordering Provider Test Date Status LEON PINK 05/30/2024 15:01:58 Final Rheumatoid factor at a level above 50 IU/mL may lead to an overestimation of the D-dimer level. A normal D-dimer result (<0.50 ug/mL FEU) has a negative predictive value of approximately 95% for the exclusion of acute pulmonary embolism (PE) or deep vein thrombosis when there is low or moderate pretest PE probability. Increased D-dimer values are abnormal but do not indicate a specific disease state and the D-dimer increase does not definitively correlate with clinical severity of disease. Observation Date Value Abnormality Reference (Units ) Status Fibrin D-dimer FEU [Mass/volume] in Platelet poor plasma by Immunoassay 05/30/2024 15:01:58 <0.27 <0.50 (ug/mL FEU) Final Performing Location [facility] [address] [facility] [address]
--- OUTSIDE RECORDS SUMMARY | 2024-06-14 02:43 | External Medical Summary | Summary of Care ---
Author Name Unknown Organization [facility] Address [address] [place] [address] Phone [phone] Care Team Providers Care End Frazer Name Role Phone Charley Mena MD Primary Care Provider [phone] Reason for Visit * Reason Onset Date Comments Order Request 02/26/2024 Encounter Details Date Type Department Care Team ([facility] Contact Info) Description 02/26/2024 Telephone General Internal Medicine [facility] [address] [place] [address] Charley Mena MD [address] [place] [address] Order Request Allergies No known active allergiesdocumented [...] with aura and without status migrainosus, not intractable,MYTRLE (generalized anxiety disorder),Insomnia, unspecified type Take 2 [...] Description 03/08/2024 7:15 AM EDT Imaging Radiology [facility]st [facility] [place] [facility] [place] [address] 05/30/2024 2:00 PM EDT Office Visit General Internal Medicine [place] [address] [facility] [place] [address] Charley Mena MD [address] [facility] [place] [address] Scheduled Orders Name Type Priority Associated Diagnoses [...] mammogram documented in this encounter Care Teams End Frazer Relationship Specialty Start Date End Date Charley Mena MD [address] [place] [address] PCP - General Internal Medicine 05/21/12 documented as of this encounter
--- OUTSIDE RECORDS SUMMARY | 2024-06-14 02:43 | External Medical Summary | Summary of Care ---
Author Name Unknown Organization [facility] Address [address] [place] [address] Phone [phone] Care Team Providers Care Meat Grading Machine Operator Name Role Phone Charley Mena MD Primary Care Provider Reason for Visit * Reason Onset Date Comments Appointment 05/30/2024 Colonoscopy Encounter Details Date Type Department Care Team ([facility] st Contact Info) Description 05/30/2024 Telephone Gastroenterology, [address] [address] Specified, Zz No Resource [address] [place] [address] Appointment (Colonoscopy /) Allergies No known active allergiesdocumented as of [...] Patient recieved flu vaccine. 08/12/2011 Ariella King, DEPUTY SHERIFF BUILDING GUARD MFM 11/29: Recommend follow up ultrasound with [...] Tobacco: Former Cigarettes 0.3 15 1 997 2011 Smokeless Tobacco: Never Comments:social smoker until [...] encounter Miscellaneous Notes * Telephone Encounter - Dena Castle OSA - 05/30/2024 5:39 PM EDT Marleny'd 10/10/24 Dr Hernández * Telephone Encounter - Nga Graves OSA - 05/30/2024 3:13 PM EDT Referral COLONOSCOPY, GI REFERRAL OP [[id number]] (Order [id number]) Currently Active Insurance Payor Plan Subscriber Member ID [facility] CHER MENDEZ [id number] PCP Information Primary Care Provider Charley Mena MD Order Information Date Department Ordering/Authorizing 05/30/2024 General Internal Medicine [facility] Charley Mena MD Order Providers Authorizing Provider Encounter Provider Charley Mena MD Mainali, Sapana, MD Referral (Pending Review) ID: [id number] Created on: 05/30/2024 Referred by Referred to Charley Mena MD Gastroenterology Reason: Ancillary Services Required Priority: Within 30 days (routine) Type: Ancillary Services Visits Requested: 999 Decision Date: 05/30/2024 Start Date: 05/30/2024 Related Appointments None Associated Diagnoses Family history of colon cancer in father [Z80.0] Comments ALERT: Do not order for pediatric patients (18 years or younger). Cancel off screen and order PEDS GASTROENTEROLOGY CONSULT (Type: 1 visit only-Evaluate and Treat) The following Pt. Instructions are available: - Gastro Colonoscopy Prep Instructions [20189] - Gastro Colonoscopy Prep Instructions (Egyptian Version) [[id number]] Go to the Pt. Instructions section within the Visit Navigator to access. Colonoscopy ASGE Guidelines: Two or more first degree relatives with cancer, or one first degree relative diagnosed before age 60 (begin at age 40 or 10 yr younger, whichever is earlier, 5 year intervals) ADDITIONAL INFORMATION 1. Is the patient on Coumadin? No 2. Is the patient on Pradaxa? No Status History Encounter View Encounter Order Questions Question Answer Referral Priority Within 30 days (routine) Where should this appointment be scheduled? [facility] Encounter View Encounter THIS REFERRAL HAS BEEN ELECTRONICALLY SIGNED * Administrative Questions: [phone] or [phone] Reprint Requisition COLONOSCOPY, GI REFERRAL OP (Order #[id number]) on 05/30/24 documented in this encounter Plan of Treatment Upcoming Encounters Date Type Department Care Team (Latest Contact Info) Description 06/10/2024 1:00 PM EDT Imaging Cardiac Studies, [facility] [address] [place] [address] 10/10/2024 2:30 PM EST Hospital Encounter ENDO [facility], Endoscopy Room [facility] [address] [place] [phone] Mauricio Lyon MD [address] [place] [address] 10/10/2024 2:30 PM EST - 10/10/2024 3:00 PM EST Surgery ENDO [facility], Endoscopy Room [facility] [address] [place] [phone] Mauricio Lyon MD [address] [place] [address] COLONOSCOPY FLEXIBLE PROXIMAL DIAGNOSTIC Scheduled Procedures Name Priority Associated Diagnoses Date/Ti me COLONOSCOPY FLEXIBLE PROXIMAL DIAGNOSTIC Family history of colon cancer 10/10/2024 2:30 PM EST Health Maintenance Due Date Last Done Comments [...] Not on filedocumented as of this encounter Care Teams Meat Grading Machine Operator Relationship Specialty Start Date End Date Charley Mena MD [address] [place] [address] PCP - General Internal Medicine 05/21/12 documented as of this encounter
--- NOTE | 2024-06-14 03:56 | CT Scan Report ---
Exam(s): CTA CHEST IV Amt: 118 ML OPTIRAY 320 EXAM: CT Angiography Chest With Intravenous Contrast CLINICAL HISTORY: Reason for exam: Dyspnea. TECHNIQUE: Axial computed tomographic angiography images of the chest with intravenous contrast. Automated exposure control was utilized for the study. A dose lowering technique was utilized adhering to the principles of ALARA. MIP reconstructed images were created and reviewed. COMPARISON: No relevant prior studies available. FINDINGS: Pulmonary arteries: Unremarkable. No pulmonary embolism. Aorta: No acute findings. No thoracic aortic aneurysm. Lungs: Unremarkable. No mass. No consolidation. Pleural space: Unremarkable. No significant effusion. No pneumothorax. Heart: Unremarkable. No cardiomegaly. No significant pericardial effusion. No evidence of RV dysfunction. Bones/joints: No acute fracture. No dislocation. Soft tissues: Unremarkable. Lymph nodes: Unremarkable. No enlarged lymph nodes. IMPRESSION: Normal chest CTA. No pulmonary embolism. Electronically signed by: Nikita Don MD 06/14/24 03:55 AM
[2024-06-14] MEDS ORDERED: ALBUTEROL HFA 8 GM INHALER INH PRN (05:22)
[2024-06-14] MEDS ORDERED: POLYETHYLENE (MIRALAX) 17 GM PACK PO PRN (05:22)
[2024-06-14] MEDS ORDERED: ACETAMINOPHEN 325 MG TAB PO PRN (05:22)
[2024-06-14] MEDS ORDERED: NITROGLYCERIN SL 0.4 MG/TAB TAB SL PRN (05:22)
[2024-06-14] MEDS: LEVOTHYROXINE SODIUM 112 MCG TABLET PO SCH (05:41)
[2024-06-14 07:22] LABS: Basophils # (auto) 0.06 K/uL (0.00-0.20); Basophils % (auto) 1.1 %; Eosinophils # (auto) 0.13 K/uL (0.00-0.50); Eosinophils % (auto) 2.4 %; Hematocrit (blood only) 36.3 % (37.0-47.0); Hemoglobin 12.3 g/dl (12.0-16.0); Immature Granulocytes # (auto) 0.01 K/uL (0.01-0.20); Immature Granulocytes % (auto) 0.2 %; Lymphocytes # (auto) 1.83 K/uL (1.20-3.40); Lymphocytes % (auto) 33.2 %; Mean Corpuscular Hemoglobin 29.5 pg (25.0-34.0); Mean Corpuscular Hgb Conc 33.9 g/dL (32.0-36.0); Mean Corpuscular Volume 87.1 fL (80.0-100.0); Mean Platelet Volume 10.5 fL (9.4-12.4); Monocytes # (auto) 0.34 K/uL (0.11-0.59); Monocytes % (auto) 6.2 %; Neutrophils # (auto) 3.14 K/uL (1.40-6.50); Neutrophils % (auto) 56.9 %; Platelet Count 320 K/uL (130-400); RDW Coefficient of Variation 12.8 % (11.5-14.5); RDW Standard Deviation 40.9 fL (36.4-46.3); Red Blood Count 4.17 M/uL (4.20-5.40); White Blood Count 5.51 K/ul (4.8-10.8)
[2024-06-14 07:36] LABS: Anion Gap 5 (3-11); BUN Creatinine Ratio 10.9 (10-20); Blood Urea Nitrogen 7 mg/dl (6-23); Calcium 8.9 mg/dl (8.6-10.3); Carbon Dioxide 26 mmol/L (21-32); Chloride 109 mmol/L (98-107); Creatinine Clr Calc Pharmacy 112.7 ml/min; Est GFR (African American) 125.8 ml/min; Est GFR (Non-African American) 108.5 ml/min; Glucose 112 mg/dl (70-99(Fasting)); Magnesium 2.2 mg/dl (1.7-2.4); Potassium 3.9 mmol/L (3.5-5.1); Sodium 140 mmol/L (136-145)
[2024-06-14 07:41] LABS: Troponin I High Sensitivity < 2.3 pg/ml (0-14)
--- NOTE | 2024-06-14 07:45 | History & Physical Report ---
Date of Service June 14, 2024 Assessment & Plan (1) SOB (shortness of breath): Plan: 44-year-old female with past medical significant for thyroiditis, allergic rhinitis, vitamin D deficiency, migraine, generalized anxiety disorder comes with shortness of breath. Patient states shortness been going for last one month associated with exertion. She went to PCP recently. D-dimer and chest x-ray okay. She is status post stress echo. On stress echo there is mild to moderate mitral insufficiency. Patient states since stress test she is getting more short of breath. She cannot take deep breath. When she is sleeping she is waking up with short of breath. Denies any chest pain. No headache. No dizziness. No runny nose or sore throat or cough. No fevers. Appetite is okay. No nausea. No abdominal pain. Normal bowel and bladder movements. Current resting comfortably and hemodynamically stable. Shortness of breath CTA chest unremarkable. Recent stress echo was negative for inducible ischemia. There is accelerated heart rate response to exercise. Resting hypertension with stress exacerbation. And also mild to moderate mitral insufficiency found. Will monitor in telemetry Cardiac consult in a.m. for any further recommendations Hypothyroidism On Synthyroid Follow TSH GERD Omeprazole DVT prophylaxis SCDs Disposition Observation med/telemetry History of Present Illness Chief Complaint: Shortness of breath Primary Care Provider: Charley Mena MD 44-year-old female with past medical significant for thyroiditis, allergic rhinitis, vitamin D deficiency, migraine, generalized anxiety disorder comes with shortness of breath. Patient states shortness been going for last one month associated with exertion. She went to PCP recently. D-dimer and chest x-ray okay. She is status post stress echo. On stress echo there is mild to moderate mitral insufficiency. Patient states since stress test she is getting more short of breath. She cannot take deep breath. When she is sleeping she is waking up with short of breath. Denies any chest pain. No headache. No dizziness. No runny nose or sore throat or cough. No fevers. Appetite is okay. No nausea. No abdominal pain. Normal bowel and bladder movements. Current resting comfortably and hemodynamically stable. Past medical history. As mentioned above Past surgical history. induced by D and E. Removal of left ovarian cyst. Social history. . Quit smoking in 2011. Smokes 0.3 pack a day for 15 years. Alcohol social drinking. No drug use. Family history. Maternal aunt had brain aneurysm. Sister has brain aneurysm. Paternal aunt had brain cancer. Maternal grandmother had cervical cancer. Father had colon cancer. Hypertension. Mother has hypertension. Paternal grandfather had colon cancer. Paternal grandmother has diabetes. Allergies Allergy/AdvReac Type Severity Reaction Status Date / Time No Known Drug Allergies Allergy Unknown Verified 06/14/24 02:53 Home Medications Medication Instructions Recorded Confirmed Type albuterol sulfate 90 mcg/actuation 2 puff inhalation Q4 PRN Shortness 11/17/23 06/14/24 History aerosol inhaler Of Breath Or Wheezing levothyroxine 112 mcg tablet 112 mcg PO DAILYBB 06/14/24 06/14/24 History (Synthroid) omeprazole 20 mg capsule,delayed 20 mg PO QAM 06/14/24 06/14/24 History release Past Med/Surg History Problem List (Updated 06/14/24 @ 07:42 by Fernandez Chan MD) SOB (shortness of breath) Acute dyspnea (Acute) Chest pain (Acute) Hypothyroidism, postablative (Acute) Endometriosis (Acute) Migraine headache (Chronic) Headache (Acute) Medical History Graves disease Cyst of left ovary Surgical History History of left oophorectomy H/O bilateral salpingectomy History of endometrial ablation History of dilation and curettage Family History Grandmother (Maternal) Cervical cancer Grandfather (Paternal) Colorectal cancer Grandfather (Maternal) Colorectal cancer Father Diabetes Hypertension Grandmother (Paternal) Diabetes Father Colorectal cancer Mother Hyperlipidemia Hypertension Aunt Cervical cancer maternal Sister Cerebral aneurysm 38 yo patient evaluated with mri/ct and negative. Denies family history of Breast cancer Social History Smoking Status: Former smoker Smoking End Date: 12 years ago; Do You Dip or Chew Tobacco: No; Hx Alcohol Use: Yes Alcohol Intake Frequency Comment: socially Hx Substance Use: No Preferred Language: Martiniquais Communication Ability: Effective Auditor Appraiser Required: No Beliefs That Will Affect Care: None Current Living Situation: Spouse and Family Current Living Situation Comment: lives with and kids Other Information That Helps Us Care for You: No Feels Safe at Home: Yes Safety Concerns: Feels Safe At This Time Assistive Devices: None Review of Systems Review of Systems: All systems reviewed & are unremarkable except as noted in HPI & below Physical Exam Physical Exam: General- Not in distress Head- atraumatic Eyes- PERRL. ENT- oropharynx clear Neck- supple, no JVD. Lungs- clear to auscultation no wheezing or crackles Heart- regular rate and rhythm; no murmur, no gallop. Abdomen- normal bowel sounds, soft, nontender, no distension Extremities- no pretibial edema, no erythema seen Neuro- alert, oriented PERRL, no facial palsy; no dysarthria; moves extremities Results & Data Results & Data Vital Signs (Past 12 Hours) Vital Signs Temp Pulse Pulse Resp BP BP Pulse Ox 06/14/24 03:00 68 18 138/90 99 06/14/24 01:08 70 06/14/24 01:06 70 18 100 06/14/24 01:06 70 18 151/98 H 100 06/14/24 01:06 100 06/14/24 00:55 36.4 C L 85 18 164/86 H 100 06/14/24 00:54 O2 Del Method 06/14/24 03:00 Room Air 06/14/24 01:08 06/14/24 01:06 Room Air 06/14/24 01:06 Room Air 06/14/24 01:06 Room Air 06/14/24 00:55 Room Air 06/14/24 00:54 Room Air Diagnostic Findings Laboratory Results WBC 5.51 K/ul (4.8-10.8) 06/14/24 06:55 RBC 4.17 M/uL (4.20-5.40) L 06/14/24 06:55 Hgb 12.3 g/dl (12.0-16.0) 06/14/24 06:55 POC Hgb 12.9 g/dl (12.0-16.0) 06/14/24 01:13 Hct 36.3 % (37.0-47.0) L 06/14/24 06:55 POC Hct 38 % (37-47) 06/14/24 01:13 MCV 87.1 fL (80.0-100.0) 06/14/24 06:55 MCH 29.5 pg (25.0-34.0) 06/14/24 06:55 MCHC 33.9 g/dL (32.0-36.0) 06/14/24 06:55 RDW Std Deviation 40.9 fL (36.4-46.3) 06/14/24 06:55 RDW Coeff of Reyes 12.8 % (11.5-14.5) 06/14/24 06:55 Plt Count 320 K/uL (130-400) 06/14/24 06:55 MPV 10.5 fL (9.4-12.4) 06/14/24 06:55 Immature Gran % (Auto) 0.2 % 06/14/24 06:55 Neut % (Auto) 56.9 % 06/14/24 06:55 Lymph % (Auto) 33.2 % 06/14/24 06:55 Pondera % (Auto) 6.2 % 06/14/24 06:55 Eos % (Auto) 2.4 % 06/14/24 06:55 Baso % (Auto) 1.1 % 06/14/24 06:55 Neut # (Auto) 3.14 K/uL (1.40-6.50) 06/14/24 06:55 Lymph # (Auto) 1.83 K/uL (1.20-3.40) 06/14/24 06:55 Pondera # (Auto) 0.34 K/uL (0.11-0.59) 06/14/24 06:55 Eos # (Auto) 0.13 K/uL (0.00-0.50) 06/14/24 06:55 Baso # (Auto) 0.06 K/uL (0.00-0.20) 06/14/24 06:55 Immature Gran # (Auto) 0.01 K/uL (0.01-0.20) 06/14/24 06:55 POC Sodium 141 mmol/L (135-144) 06/14/24 01:13 Sodium 140 mmol/L (136-145) 06/14/24 06:55 POC Potassium 3.1 mmol/L (3.3-5.0) L 06/14/24 01:13 Potassium 3.9 mmol/L (3.5-5.1) 06/14/24 06:55 POC Chloride 106 mmol/L (101-112) 06/14/24 01:13 Chloride 109 mmol/L (98-107) H 06/14/24 06:55 Carbon Dioxide 26 mmol/L (21-32) 06/14/24 06:55 POC Total CO2 21 mmol/L (24-31) L 06/14/24 01:13 Anion Gap 5 (3-11) 06/14/24 06:55 POC Anion Gap 18.0 mmol/L (16-25) 06/14/24 01:13 POC BUN 8 mg/dl (7-18) 06/14/24 01:13 BUN 7 mg/dl (6-23) 06/14/24 06:55 Creatinine 0.64 mg/dl (0.6-1.2) 06/14/24 06:55 POC Creatinine 0.7 mg/dl (0.6-1.3) 06/14/24 01:13 Est Cr Clr Drug Dosing 112.7 ml/min 06/14/24 06:55 Est GFR ( Amer) 125.8 ml/min 06/14/24 06:55 Est GFR (Non-Af Amer) 108.5 ml/min 06/14/24 06:55 BUN/Creatinine Ratio 10.9 (10-20) 06/14/24 06:55 Glucose 112 mg/dl (70-99(Fasting)) H 06/14/24 06:55 POC Glucose (other) 112 mg/dl (70-99) H 06/14/24 01:13 Calcium 8.9 mg/dl (8.6-10.3) 06/14/24 06:55 POC Ioniz Calcium Rafael 1.12 mmol/l (1.12-1.32) 06/14/24 01:13 Magnesium 2.2 mg/dl (1.7-2.4) 06/14/24 06:55 Total Bilirubin 0.3 mg/dl (0.2-1.0) 06/14/24 01:09 AST 15 U/L (13-39) 06/14/24 01:09 ALT 12 U/L (7-52) 06/14/24 01:09 Alkaline Phosphatase 60 U/L (34-104) 06/14/24 01:09 Troponin I High Sens < 2.3 pg/ml (0-14) 06/14/24 01:09 B-Natriuretic Peptide 15 pg/ml (0-100) 06/14/24 01:09 Total Protein 7.3 gm/dl (6.0-8.3) 06/14/24 01:09 Albumin 4.6 gm/dl (3.4-5.0) 06/14/24 01:09 Globulin 2.7 gm/dl (2.5-4.0) 06/14/24 01:09 Albumin/Globulin Ratio 1.7 (0.9-2) 06/14/24 01:09 Impressions Chest CTA 06/14/24 01:06 Exam(s): CTA CHEST IV Amt: 118 ML OPTIRAY 320 EXAM: CT Angiography Chest With Intravenous Contrast CLINICAL HISTORY: Reason for exam: Dyspnea. TECHNIQUE: Axial computed tomographic angiography images of the chest with intravenous contrast. Automated exposure control was utilized for the study. A dose lowering technique was utilized adhering to the principles of ALARA. MIP reconstructed images were created and reviewed. COMPARISON: No relevant prior studies available. FINDINGS: Pulmonary arteries: Unremarkable. No pulmonary embolism. Aorta: No acute findings. No thoracic aortic aneurysm. Lungs: Unremarkable. No mass. No consolidation. Pleural space: Unremarkable. No significant effusion. No pneumothorax. Heart: Unremarkable. No cardiomegaly. No significant pericardial effusion. No evidence of RV dysfunction. Bones/joints: No acute fracture. No dislocation. Soft tissues: Unremarkable. Lymph nodes: Unremarkable. No enlarged lymph nodes. IMPRESSION: Normal chest CTA. No pulmonary embolism. Electronically signed by: Nikita Don MD 06/14/24 03:55 AM ECG Additional Comments: ECG. Normal sinus rhythm rate of 65. No acute ST changes seen. Code Status & VTE Plan VTE Prophylaxis Plan VTE Prophylaxis will be ordered: Yes
[2024-06-14 07:51] LABS: Thyroid Stimulating Hormone 2.626 uIu/ml (0.300-4.500)
[2024-06-14] MEDS: PANTOprazole 40 MG TAB PO SCH (08:09)
--- NOTE | 2024-06-14 10:02 | Electrocardiogram Report ---
Test Reason : Blood Pressure : */* mmHG Vent. Rate : 65 BPM Atrial Rate : 65 BPM P-R Int : 140 ms QRS Dur : 76 ms QT Int : 408 ms P-R-T Axes : 25 6 53 degrees QTcB Int : 424 ms Normal sinus rhythm Normal ECG No previous ECGs available Confirmed by Miguel Hwang [id number]) on 06/14/2024 10:01:59 AM Referred By: REFERRED SELF Confirmed By: Miguel Hwang
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
--- NOTE | 2024-06-14 12:24 | Gastrointestinal Consultation ---
Date of Consultation June 14, 2024 Assessment & Plan (1) Dysphagia: 44 year old female with history of thyroiditis, allergic rhinitis, vitamin D deficiency, migraine, generalized anxiety disorder and others below admitted through the ED w/ report of chest pain and SOB w/ a negative chest x-ra y, CTA, EKG, troponin are negative, stress echo shows mild to moderate mitral insufficiency. GI was asked to evaluate for intermittent solids dysphagia, odynophagia, epigastric pressure, heartburn symptoms. Can maintain NPO status Will discuss availability for add on EGD today with endoscopy unit Can continue oral Pantoprazole GERD dietary and lifestyle changes discussed We appreciate assistance in the management of any serological abnormality and corrections to include: hemoglobin >7, INR <2, platelets >50,000, potassium levels >3.5 but <5.3, and sodium levels within 5 points of the reference range prior to endoscopic evaluation. Thank you for allowing us to participate in the care of this patient. Please call with any acute changes, questions or concerns. Please see addendum below w ith additional recommendation from my supervising physician. I spent a total of 60 minutes on the date of service in review of patient's record, and previously obtained information in person and appropriate medical visit, discussion and education of plan, with patient and/or caregiver, placing orders for tests/referral/procedures as medically necessary and documentation of pertinent clinical information in patient's medical records for their visit today. Supervising Physician Co-Signing Physician Notes I personally saw and examined the patient. I have reviewed the chart and agree with the documentation provided by the [facility] including discussion about the assessment, treatment and plan. Briefly, 44 year old female with history of thyroiditis, allergic rhinitis, vitamin D deficiency, migraine, generalized anxiety disorder and others below admitted through the ED w/ report of chest pain and SOB w/ a negative chest x-ray, CTA, EKG, troponin are negative, stress echo shows mild to moderate mitral insufficiency. GI was asked to evaluate for intermittent solids dysphagia, odynophagia, epigastric pressure, heartburn symptoms. EGD eval today. DDX: stricture, gerd, ring, or eoe >>> mass. NPO History of Present Illness Reason for Consultation: dysphagia Requesting Physician: Nasrin Attending Physician: Colton Alexandra MD History of Present Illness 44 year old female with history of thyroiditis, allergic rhinitis, vitamin D deficiency, migraine, generalized anxiety disorder and others below admitted through the ED w/ report of SOB. GI was asked to evaluate ofr dysphagia. Pt was seen and evaluated, chart reviewed. Notes that she has has heartburn type symptoms for maybe 1-2 months. Was evaluated by PCP for this, advised to trial OTC PPI. This did not seem to improve her symptoms. She notes epigastric burning sensation, intermittent nausea, no vomiting, intermittent solids dysphagia and a globus sensation. She does have frequent sore throats. She reports to me she wakes up from sleep feeling SOB and is concerned this is related to her acid reflux she has been experiencing. Denies hoarseness. Stools are intermittent loose. Denies black or bloody stools. Reports weight gain. No fever, chills, CP, SOB now. Regarding her work up for her SOB, D-dimer, chest x-ray, CTA, EKG, troponins are negative. Stress echo shows mild to moderate mitral insufficiency NSAIDs PRN MSK aches/pains ETOH social but not weekly No tobacco No AC EGD: none Colonoscopy: none + family history of colon cancer in her father around age 50/60. She is scheduled for a colonoscopy in October w/ Dr. Lyon Allergies Allergy/AdvReac Type Severity Reaction Status Date / Time No Known Drug Allergies Allergy Unknown Verified 06/14/24 02:53 Home Medications Medication Instructions Recorded Confirmed Type albuterol sulfate 90 mcg/actuation 2 puff inhalation Q4 PRN Shortness 11/17/23 06/14/24 History aerosol inhaler Of Breath Or Wheezing levothyroxine 112 mcg tablet 112 mcg PO DAILYBB 06/14/24 06/14/24 History (Synthroid) omeprazole 20 mg capsule,delayed 20 mg PO QAM 06/14/24 06/14/24 History release Patient History Medical History Graves disease Cyst of left ovary Surgical History History of left oophorectomy H/O bilateral salpingectomy History of endometrial ablation History of dilation and curettage Family History Grandmother (Maternal) Cervical cancer Grandfather (Paternal) Colorectal cancer Grandfather (Maternal) Colorectal cancer Father Diabetes Hypertension Grandmother (Paternal) Diabetes Father Colorectal cancer Mother Hyperlipidemia Hypertension Aunt Cervical cancer maternal Sister Cerebral aneurysm 38 yo patient evaluated with mri/ct and negative. Denies family history of Breast cancer Social History Smoking Status: Former smoker Smoking End Date: 12 years ago; Do You Dip or Chew Tobacco: No; Hx Alcohol Use: Yes Alcohol Intake Frequency Comment: socially Hx Substance Use: No Preferred Language: Persian Communication Ability: Effective Injury Prevention Coordinator Required: No Beliefs That Will Affect Care: None Current Living Situation: Spouse and Family Current Living Situation Comment: lives with and kids Other Information That Helps Us Care for You: No Feels Safe at Home: Yes Safety Concerns: Feels Safe At This Time Assistive Devices: None Review of Systems Review of Systems: All other findings negative except as noted in HPI. Physical Exam Constitutional: WD/WN, vitals as above Respiratory: normal respiratory effort, lungs clear to auscultation Cardiovascular: Rate/Rhythm: regular rate and regular rhythm Gastrointestinal (Abdomen): normal bowel sounds, soft, nontender, no hepatosplenomegaly Skin: no rashes, warm and dry Results & Data Vital Signs (Past 12 Hours) Vital Signs Temp Pulse Pulse Pulse Resp BP BP 06/14/24 08:05 06/14/24 07:35 36.5 C 61 18 133/78 06/14/24 07:09 54 L 06/14/24 05:16 62 06/14/24 05:15 06/14/24 05:03 36.5 C 67 18 145/92 H 06/14/24 04:39 53 L 15 143/82 H 06/14/24 03:00 68 18 138/90 06/14/24 01:08 70 06/14/24 01:06 70 18 06/14/24 01:06 70 18 151/98 H 06/14/24 01:06 06/14/24 00:55 36.4 C L 85 18 164/86 H 06/14/24 00:54 Pulse Ox O2 Del Method 06/14/24 08:05 Room Air 06/14/24 07:35 98 Room Air 06/14/24 07:09 06/14/24 05:16 06/14/24 05:15 Room Air 06/14/24 05:03 100 Room Air 06/14/24 04:39 99 Room Air 06/14/24 03:00 99 Room Air 06/14/24 01:08 06/14/24 01:06 100 Room Air 06/14/24 01:06 100 Room Air 06/14/24 01:06 100 Room Air 06/14/24 00:55 100 Room Air 06/14/24 00:54 Room Air Laboratory Results 06/14/24 06/14/24 06/14/24 Range/Units 06:55 01:13 01:09 WBC 5.51 7.35 (4.8-10.8) K/ul RBC 4.17 L 4.35 (4.20-5.40) M/uL Hgb 12.3 12.8 (12.0-16.0) g/dl POC Hgb 12.9 (12.0-16.0) g/dl Hct 36.3 L 38.4 (37.0-47.0) % POC Hct 38 (37-47) % MCV 87.1 88.3 (80.0-100.0) fL MCH 29.5 29.4 (25.0-34.0) pg MCHC 33.9 33.3 (32.0-36.0) g/dL RDW Std Deviation 40.9 40.9 (36.4-46.3) fL RDW Coeff of Reyes 12.8 12.7 (11.5-14.5) % Plt Count 320 331 (130-400) K/uL MPV 10.5 10.5 (9.4-12.4) fL Immature Gran % (Auto) 0.2 0.3 % Neut % (Auto) 56.9 55.2 % Lymph % (Auto) 33.2 34.4 % [place] % (Auto) 6.2 5.2 % Eos % (Auto) 2.4 3.8 % Baso % (Auto) 1.1 1.1 % Neut # (Auto) 3.14 4.06 (1.40-6.50) K/uL Lymph # (Auto) 1.83 2.53 (1.20-3.40) K/uL [place] # (Auto) 0.34 0.38 (0.11-0.59) K/uL Eos # (Auto) 0.13 0.28 (0.00-0.50) K/uL Baso # (Auto) 0.06 0.08 (0.00-0.20) K/uL Immature Gran # (Auto) 0.01 0.02 (0.01-0.20) K/uL POC Sodium 141 (135-144) mmol/L Sodium 140 139 (136-145) mmol/L POC Potassium 3.1 L (3.3-5.0) mmol/L Potassium 3.9 3.3 L (3.5-5.1) mmol/L POC Chloride 106 (101-112) mmol/L Chloride 109 H 107 (98-107) mmol/L Carbon Dioxide 26 23 (21-32) mmol/L POC Total CO2 21 L (24-31) mmol/L Anion Gap 5 9 (3-11) POC Anion Gap 18.0 (16-25) mmol/L POC BUN 8 (7-18) mg/dl BUN 7 9 (6-23) mg/dl Creatinine 0.64 0.68 (0.6-1.2) mg/dl POC Creatinine 0.7 (0.6-1.3) mg/dl Est Cr Clr Drug Dosing 112.7 107.2 ml/min Est GFR ( Amer) 125.8 123.3 ml/min Est GFR (Non-Af Amer) 108.5 106.4 ml/min BUN/Creatinine Ratio 10.9 13.2 (10-20) Glucose 112 H 113 H (70-99(Fasting)) mg/dl POC Glucose (other) 112 H (70-99) mg/dl Calcium 8.9 9.1 (8.6-10.3) mg/dl POC Ioniz Calcium Rafael 1.12 (1.12-1.32) mmol/l Magnesium 2.2 2.1 (1.7-2.4) mg/dl Total Bilirubin 0.3 (0.2-1.0) mg/dl AST 15 (13-39) U/L ALT 12 (7-52) U/L Alkaline Phosphatase 60 (34-104) U/L Troponin I High Sens < 2.3 < 2.3 (0-14) pg/ml B-Natriuretic Peptide 15 (0-100) pg/ml Total Protein 7.3 (6.0-8.3) gm/dl Albumin 4.6 (3.4-5.0) gm/dl Globulin 2.7 (2.5-4.0) gm/dl Albumin/Globulin Ratio 1.7 (0.9-2) TSH 2.626 (0.300-4.500) uIu/ml Diagnostic Findings 06/14/24 06/14/24 06/14/24 Range/Units 06:55 01:13 01:09 WBC 5.51 7.35 (4.8-10.8) K/ul RBC 4.17 L 4.35 (4.20-5.40) M/uL Hgb 12.3 12.8 (12.0-16.0) g/dl POC Hgb 12.9 (12.0-16.0) g/dl Hct 36.3 L 38.4 (37.0-47.0) % POC Hct 38 (37-47) % MCV 87.1 88.3 (80.0-100.0) fL MCH 29.5 29.4 (25.0-34.0) pg MCHC 33.9 33.3 (32.0-36.0) g/dL RDW Std Deviation 40.9 40.9 (36.4-46.3) fL RDW Coeff of Reyes 12.8 12.7 (11.5-14.5) % Plt Count 320 331 (130-400) K/uL MPV 10.5 10.5 (9.4-12.4) fL Immature Gran % (Auto) 0.2 0.3 % Neut % (Auto) 56.9 55.2 % Lymph % (Auto) 33.2 34.4 % [place] % (Auto) 6.2 5.2 % Eos % (Auto) 2.4 3.8 % Baso % (Auto) 1.1 1.1 % Neut # (Auto) 3.14 4.06 (1.40-6.50) K/uL Lymph # (Auto) 1.83 2.53 (1.20-3.40) K/uL [place] # (Auto) 0.34 0.38 (0.11-0.59) K/uL Eos # (Auto) 0.13 0.28 (0.00-0.50) K/uL Baso # (Auto) 0.06 0.08 (0.00-0.20) K/uL Immature Gran # (Auto) 0.01 0.02 (0.01-0.20) K/uL POC Sodium 141 (135-144) mmol/L Sodium 140 139 (136-145) mmol/L POC Potassium 3.1 L (3.3-5.0) mmol/L Potassium 3.9 3.3 L (3.5-5.1) mmol/L POC Chloride 106 (101-112) mmol/L Chloride 109 H 107 (98-107) mmol/L Carbon Dioxide 26 23 (21-32) mmol/L POC Total CO2 21 L (24-31) mmol/L Anion Gap 5 9 (3-11) POC Anion Gap 18.0 (16-25) mmol/L POC BUN 8 (7-18) mg/dl BUN 7 9 (6-23) mg/dl Creatinine 0.64 0.68 (0.6-1.2) mg/dl POC Creatinine 0.7 (0.6-1.3) mg/dl Est Cr Clr Drug Dosing 112.7 107.2 ml/min Est GFR ( Amer) 125.8 123.3 ml/min Est GFR (Non-Af Amer) 108.5 106.4 ml/min BUN/Creatinine Ratio 10.9 13.2 (10-20) Glucose 112 H 113 H (70-99(Fasting)) mg/dl POC Glucose (other) 112 H (70-99) mg/dl Calcium 8.9 9.1 (8.6-10.3) mg/dl POC Ioniz Calcium [place] 1.12 (1.12-1.32) mmol/l Magnesium 2.2 2.1 (1.7-2.4) mg/dl Total Bilirubin 0.3 (0.2-1.0) mg/dl AST 15 (13-39) U/L ALT 12 (7-52) U/L Alkaline Phosphatase 60 (34-104) U/L Troponin I High Sens < 2.3 < 2.3 (0-14) pg/ml B-Natriuretic Peptide 15 (0-100) pg/ml Total Protein 7.3 (6.0-8.3) gm/dl Albumin 4.6 (3.4-5.0) gm/dl Globulin 2.7 (2.5-4.0) gm/dl Albumin/Globulin Ratio 1.7 (0.9-2) TSH 2.626 (0.300-4.500) uIu/ml PG Care Time/CCT Total # of Minutes Spent Total Time Spent with Patient: Total time spent is greater than 50% in coordination of care (as documented) at patient's floor/unit and/or counseling patient: Coding Level of Care Code 96512 IN/OBS CONSULT LVL 4,60M Diagnoses Dysphagia, unspecified type R13.10 Dysphagia type: unspecified (1) Dysphagia Dysphagia type: unspecified Qualified Code(s): R13.10 - Dysphagia, unspecified
--- NOTE | 2024-06-14 13:03 | Anesthesiology Consultation ---
Date of Service June 14, 2024 Assessment & Plan Chart Review Chart Review: Acceptable Risk for Surgery, Patient NOT seen in Pre Admission Testing and manager entry initiated Consults Requested none Proposed Anesthesia Anesthesia Type: MAC History Surgery Operation Date: 06/14/24 16:45 Proposed Procedures p Esophagogastroduodenoscopy Aide Noble MD Height/Weight Height: 5 ft 4 in Weight: 77.1 kg Allergies Allergy/AdvReac Type Severity Reaction Status Date / Time No Known Drug Allergies Allergy Unknown Verified 06/14/24 02:53 Medications Home Medications Medication Instructions Recorded Confirmed Last Taken albuterol sulfate 90 mcg/actuation 2 puff inhalation Q4 PRN Shortness 11/17/23 06/14/24 Unknown aerosol inhaler Of Breath Or Wheezing levothyroxine 112 mcg tablet 112 mcg PO DAILYBB 06/14/24 06/14/24 06/13/24 (Synthroid) omeprazole 20 mg capsule,delayed 20 mg PO QAM 06/14/24 06/14/24 06/14/24 release Active Medications Generic Name Dose Route Start Last Admin Trade Name Feltonq PRN Reason Stop Dose Admin Levothyroxine Sodium 112 mcg 06/14/24 06:30 06/14/24 05:41 Levothyroxine Sodium 112 Mcg Tablet PO 07/14/24 06:29 112 mcg DAILYBB TRES Administration Pantoprazole Sodium 40 mg 06/14/24 09:00 06/14/24 08:09 Pantoprazole 40 Mg Tab PO 07/14/24 08:59 40 mg QAM TRES Administration Past Medical History Medical History Graves disease Cyst of left ovary Past Family History Family History Grandmother (Maternal) Cervical cancer Grandfather (Paternal) Colorectal cancer Grandfather (Maternal) Colorectal cancer Father Diabetes Hypertension Grandmother (Paternal) Diabetes Father Colorectal cancer Mother Hyperlipidemia Hypertension Aunt Cervical cancer maternal Sister Cerebral aneurysm 38 yo patient evaluated with mri/ct and negative. Denies family history of Breast cancer Past Surgical History Surgical History History of left oophorectomy H/O bilateral salpingectomy History of endometrial ablation History of dilation and curettage Social History Smoking Status: Former smoker Do You Dip or Chew Tobacco: No Smoking End Date: 12 years ago Hx Alcohol Use: Yes alcohol intake frequency: holidays/special occasions only Hx Substance Use: No substance use type: does not use Physical Exam Vital Signs Last Vital Signs Temp 36.6 C 06/14/24 12:23 Pulse 63 06/14/24 12:23 Resp 16 06/14/24 12:23 BP 142/84 H 06/14/24 12:23 Pulse Ox 99 06/14/24 12:23 O2 Del Method Room Air 06/14/24 12:23 Testing Laboratory Results 06/14/24 06:55 06/14/24 06:55 06/14/24 01:13 POC Glucose (other) 112 H Electrocardiogram Date: 06/14/24 Findings: + NSR @ (58)
[2024-06-14 13:14] VITALS: TEMP 97.3
[2024-06-14] MEDS: SODIUM CHLORIDE 0.9% 500 ML IV SCH (13:24)
--- NOTE | 2024-06-14 13:47 | Hospitalist Progress Note ---
Date of Service June 14, 2024 Assessment & Plan (1) SOB (shortness of breath): Plan: 44-year-old female with past medical significant for thyroiditis, allergic rhinitis, vitamin D deficiency, migraine, generalized anxiety disorder comes with shortness of breath. Patient states shortness been going for last one month associated with exertion. She went to PCP recently. D-dimer and chest x-ray okay. She is status post stress echo. On stress echo there is mild to moderate mitral insufficiency. Patient states since stress test she is getting more short of breath. She cannot take deep breath. When she is sleeping she is waking up with short of breath. Denies any chest pain. No headache. No dizziness. No runny nose or sore throat or cough. No fevers. Appetite is okay. No nausea. No abdominal pain. Normal bowel and bladder movements. Current resting comfortably and hemodynamically stable. Shortness of breath Atypical chest pain Mitral regurgitation Symptoms unlikely due to mitral regurgitation --CTA:Normal chest CTA. No pulmonary embolism. -- Outpatient stress test on 06/12/2024 negative for ischemic heart disease --ECHO on 06/12/24: Mild to moderate mitral regurgitation. Appreciate cardiology input Needs repeat echo in 1 year Will consider PFTs as outpatient Dysphagia/odynophagia Possibly GERD Plan for EGD today Appreciate GI input Recently started on Protonix as outpatient Continue PPI Hypothyroidism Normal TSH Continue levothyroxine DVT prophylaxis SCDs Disposition Plan to discharge home as able Admission and Anticipated Discharge Date Admission Date: June 14, 2024 Subjective Patient is seen and examined at bedside Admits to having intermittent dysphagia especially to solids Also reports frequent burping, and dyspnea Discussed with cardiology today Denies any chest pain, dizziness, nausea, vomiting, abdominal pain today Plan for EGD today Review of Systems Review of Systems: All systems reviewed & are unremarkable except as noted in Subjective Physical Exam Physical Exam: Physical Exam: Vitals signs as noted above General Appearance:Moderately built and nourished, no apparent distress Head: normocephalic, Atraumatic Eyes: normal inspection, EOMI Neck: supple, Trachea midline Respiratory/Chest: Normal breath sounds, CTA, No accessory muscle use Cardiovascular: S1, S2, No murmur Abdomen/GI:Soft, Non tender, Bowel sounds present Extremities/Musculoskeletal:normal inspection, no edema Neurologic/Psych:AAOX3, grossly no focal neurological deficits Skin: normal color, warm Results & Data Results & Data Vital Signs (Past 12 Hours) Vital Signs Temp Pulse Pulse Pulse Resp BP Pulse Ox 06/14/24 13:08 36.3 C L 57 L 16 150/86 H 100 06/14/24 12:23 36.6 C 63 16 142/84 H 99 06/14/24 08:05 06/14/24 07:35 36.5 C 61 18 133/78 98 06/14/24 07:09 54 L 06/14/24 05:16 62 06/14/24 05:15 06/14/24 05:03 36.5 C 67 18 145/92 H 100 06/14/24 04:39 53 L 15 143/82 H 99 06/14/24 03:00 68 18 138/90 99 O2 Del Method 06/14/24 13:08 Room Air 06/14/24 12:23 Room Air 06/14/24 08:05 Room Air 06/14/24 07:35 Room Air 06/14/24 07:09 06/14/24 05:16 06/14/24 05:15 Room Air 06/14/24 05:03 Room Air 06/14/24 04:39 Room Air 06/14/24 03:00 Room Air Laboratory Results Short CBC 06/14/24 06/14/24 Range/Units 01:09 06:55 WBC 7.35 5.51 (4.8-10.8) K/ul Hgb 12.8 12.3 (12.0-16.0) g/dl Hct 38.4 36.3 L (37.0-47.0) % Plt Count 331 320 (130-400) K/uL BMP 06/14/24 06/14/24 01:09 06:55 Sodium 139 140 Potassium 3.3 L 3.9 Chloride 107 109 H Carbon Dioxide 23 26 BUN 9 7 Creatinine 0.68 0.64 Glucose 113 H 112 H Calcium 9.1 8.9 Liver Function 06/14/24 Range/Units 01:09 Total Bilirubin 0.3 (0.2-1.0) mg/dl AST 15 (13-39) U/L ALT 12 (7-52) U/L Alkaline Phosphatase 60 (34-104) U/L Albumin 4.6 (3.4-5.0) gm/dl
[2024-06-14] MEDS ORDERED: LIDOCAINE 2% 2 ML VIAL/AMP(20MG/ML) INFIL ONE (13:56)
[2024-06-14] MEDS ORDERED: PROPOFOL IV EMULSION 10 MG/ML 20 ML VIAL IV ONE ×2 (13:56→14:23)
--- NOTE | 2024-06-14 14:23 | GI REPORT ---
[facility] Patient: CRISPIN MENDEZ : 1980 Sex at : Female Age: 44 Years Procedure: Upper GI endoscopy Date: 06/14/2024 Attending Physician: Jerome Noble MD Referring MD: Referred Self Indications: - Dysphagia - Esophageal reflux Medications: - Monitored Anesthesia Care Complications: - No immediate complications. Estimated Blood Loss: - Estimated blood loss: None. - Estimated blood loss was minimal. Procedure: - Prior to the procedure, a History and Physical was performed, and patient medications and allergies were reviewed. The patient's tolerance of previous anesthesia was also reviewed. The risks and benefits of the procedure and the sedation options and risks were discussed with the patient. All questions were answered, and informed consent was obtained. Prior Anticoagulants: The patient has taken no anticoagulant or antiplatelet agents. ASA Grade Assessment: II - A patient with mild systemic disease. After reviewing the risks and benefits, the patient was deemed in satisfactory condition to undergo the procedure. - The egd scope was introduced through the mouth and advanced to the third part of the duodenum. - The upper GI endoscopy was accomplished without difficulty. - The patient tolerated the procedure well. - The upper GI endoscopy was accomplished with ease. Findings: - Mucosal changes including longitudinal furrows and ringed esophagus were found in the distal esophagus and in the mid esophagus. Esophageal findings were graded using the Eosinophilic Esophagitis Endoscopic Reference Score (EoE-EREFS) as: Furrows Grade 1 Mild (vertical lines without visible depth) and Rings Grade 2 Moderate (distinct rings that do not occlude passage of diagnostic 8-10 mm endoscope). Biopsies were obtained from the distal and proximal esophagus with cold forceps for histology of suspected eosinophilic esophagitis. - The cardia and gastric fundus were normal on retroflexion. - The examined duodenum was normal. Impression: - Esophageal mucosal changes suspicious for eosinophilic esophagitis. - Biopsies were taken with a cold forceps for evaluation of eosinophilic esophagitis. - Normal examined duodenum. Recommendation: - Discharge patient to home (ambulatory). - Resume previous diet. - Continue present medications. - Await pathology results. - Return to primary care physician as previously scheduled. - Patient has a contact number available for emergencies. The signs and symptoms of potential delayed complications were discussed with the patient. Return to normal activities tomorrow. Written discharge instructions were provided to the patient. - start pantoprazole 40 mg po qam Procedure Code(s): - 69667, Esophagogastroduodenoscopy, flexible, transoral; with biopsy, single or multiple Diagnosis Code(s): - R13.10, Dysphagia, unspecified - K21.9, Gastro-esophageal reflux disease without esophagitis - K22.89, Other specified disease of esophagus CPT(R) - 202 copyright [employer]. All Rights Reserved. The CPT codes, CCI edits and ICD codes generated are intended as suggestions and were generated based on input data. These codes are preliminary and upon char filter tank tender review may be revised to meet current compliance and payer requirements. The provider is responsible for the final determination of appropriate codes, and modifiers. Jerome Noble MD This document has been electronically signed. Note Initiated:06/14/2024 Note Completed:06/14/2024 2:22 PM \\[email or web address]\Provation\Results\LIVE\[id number]
[2024-06-14 14:37] VITALS: O2SAT 99
--- NOTE | 2024-06-14 14:44 | Discharge Summary ---
Date of Service June 14, 2024 Admission HPI Per Admitting Provider 44-year-old female with past medical significant for thyroiditis, allergic rhinitis, vitamin D deficiency, migraine, generalized anxiety disorder comes with shortness of breath. Patient states shortness been going for last one month associated with exertion. She went to PCP recently. D-dimer and chest x-ray okay. She is status post stress echo. On stress echo there is mild to moderate mitral insufficiency. Patient states since stress test she is getting more short of breath. She cannot take deep breath. When she is sleeping she is waking up with short of breath. Denies any chest pain. No hea dache. No dizziness. No runny nose or sore throat or cough. No fevers. Appetite is okay. No nausea. No abdominal pain. Normal bowel and bladder movements. Current resting comfortably and hemodynamically stable. Past medical history. As mentioned above Past surgical history. induced by D and E. Removal of left ovarian cyst. Social history. . Quit smoking in 2011. Smokes 0.3 pack a day for 15 years. Alcohol social drinking. No drug use. Family history. Maternal aunt had brain aneurysm. Sister has brain aneurysm. Paternal aunt had brain cancer. Maternal grandmother had cervical cancer. Father had colon cancer. Hypertension. Mother has hypertension. Paternal grandfather had colon cancer. Paternal grandmother has diabetes. Admission Exam Per Admitting Provider General- Not in distress Head- atraumatic Eyes- PERRL. ENT- oropharynx clear Neck- supple, no JVD. Lungs- clear to auscultation no wheezing or crackles Heart- regular rate and rhythm; no murmur, no gallop. Abdomen- normal bowel sounds, soft, nontender, no distension Extremities- no pretibial edema, no erythema seen Neuro- alert, oriented PERRL, no facial palsy; no dysarthria; moves extremities Principal Diagnosis Dysphagia Suspected eosinophilic esophagitis Mitral regurgitation Discharge Data Allergies Allergy/AdvReac Type Severity Reaction Status Date / Time No Known Drug Allergies Allergy Unknown Verified 06/14/24 02:53 Consultations 06/14/24 02:41 ED Decision to Admit Stat 06/14/24 08:00 Consult Cardiology Routine 06/14/24 11:27 Consult Gastroenterology Routine Procedures Performed Operation Date: 06/14/24 16:45 Actual Procedures p EGD Biopsy Cytology - Jerome Noble MD Ordered Studies 06/14/24 01:06 CT angio chest PE protocol Stat Laboratory Results WBC 5.51 K/ul (4.8-10.8) 06/14/24 06:55 RBC 4.17 M/uL (4.20-5.40) L 06/14/24 06:55 Hgb 12.3 g/dl (12.0-16.0) 06/14/24 06:55 POC Hgb 12.9 g/dl (12.0-16.0) 06/14/24 01:13 Hct 36.3 % (37.0-47.0) L 06/14/24 06:55 POC Hct 38 % (37-47) 06/14/24 01:13 MCV 87.1 fL (80.0-100.0) 06/14/24 06:55 MCH 29.5 pg (25.0-34.0) 06/14/24 06:55 MCHC 33.9 g/dL (32.0-36.0) 06/14/24 06:55 RDW Std Deviation 40.9 fL (36.4-46.3) 06/14/24 06:55 RDW Coeff of Reyes 12.8 % (11.5-14.5) 06/14/24 06:55 Plt Count 320 K/uL (130-400) 06/14/24 06:55 MPV 10.5 fL (9.4-12.4) 06/14/24 06:55 Immature Gran % (Auto) 0.2 % 06/14/24 06:55 Neut % (Auto) 56.9 % 06/14/24 06:55 Lymph % (Auto) 33.2 % 06/14/24 06:55 Saline % (Auto) 6.2 % 06/14/24 06:55 Eos % (Auto) 2.4 % 06/14/24 06:55 Baso % (Auto) 1.1 % 06/14/24 06:55 Neut # (Auto) 3.14 K/uL (1.40-6.50) 06/14/24 06:55 Lymph # (Auto) 1.83 K/uL (1.20-3.40) 06/14/24 06:55 Saline # (Auto) 0.34 K/uL (0.11-0.59) 06/14/24 06:55 Eos # (Auto) 0.13 K/uL (0.00-0.50) 06/14/24 06:55 Baso # (Auto) 0.06 K/uL (0.00-0.20) 06/14/24 06:55 Immature Gran # (Auto) 0.01 K/uL (0.01-0.20) 06/14/24 06:55 POC Sodium 141 mmol/L (135-144) 06/14/24 01:13 Sodium 140 mmol/L (136-145) 06/14/24 06:55 POC Potassium 3.1 mmol/L (3.3-5.0) L 06/14/24 01:13 Potassium 3.9 mmol/L (3.5-5.1) 06/14/24 06:55 POC Chloride 106 mmol/L (101-112) 06/14/24 01:13 Chloride 109 mmol/L (98-107) H 06/14/24 06:55 Carbon Dioxide 26 mmol/L (21-32) 06/14/24 06:55 POC Total CO2 21 mmol/L (24-31) L 06/14/24 01:13 Anion Gap 5 (3-11) 06/14/24 06:55 POC Anion Gap 18.0 mmol/L (16-25) 06/14/24 01:13 POC BUN 8 mg/dl (7-18) 06/14/24 01:13 BUN 7 mg/dl (6-23) 06/14/24 06:55 Creatinine 0.64 mg/dl (0.6-1.2) 06/14/24 06:55 POC Creatinine 0.7 mg/dl (0.6-1.3) 06/14/24 01:13 Est Cr Clr Drug Dosing 112.7 ml/min 06/14/24 06:55 Est GFR ( Amer) 125.8 ml/min 06/14/24 06:55 Est GFR (Non-Af Amer) 108.5 ml/min 06/14/24 06:55 BUN/Creatinine Ratio 10.9 (10-20) 06/14/24 06:55 Glucose 112 mg/dl (70-99(Fasting)) H 06/14/24 06:55 POC Glucose (other) 112 mg/dl (70-99) H 06/14/24 01:13 Calcium 8.9 mg/dl (8.6-10.3) 06/14/24 06:55 POC Ioniz Calcium Rafael 1.12 mmol/l (1.12-1.32) 06/14/24 01:13 Magnesium 2.2 mg/dl (1.7-2.4) 06/14/24 06:55 Total Bilirubin 0.3 mg/dl (0.2-1.0) 06/14/24 01:09 AST 15 U/L (13-39) 06/14/24 01:09 ALT 12 U/L (7-52) 06/14/24 01:09 Alkaline Phosphatase 60 U/L (34-104) 06/14/24 01:09 Troponin I High Sens < 2.3 pg/ml (0-14) 06/14/24 06:55 B-Natriuretic Peptide 15 pg/ml (0-100) 06/14/24 01:09 Total Protein 7.3 gm/dl (6.0-8.3) 06/14/24 01:09 Albumin 4.6 gm/dl (3.4-5.0) 06/14/24 01:09 Globulin 2.7 gm/dl (2.5-4.0) 06/14/24 01:09 Albumin/Globulin Ratio 1.7 (0.9-2) 06/14/24 01:09 TSH 2.626 uIu/ml (0.300-4.500) 06/14/24 06:55 Impressions Chest CTA 06/14/24 01:06 Exam(s): CTA CHEST IV Amt: 118 ML OPTIRAY 320 EXAM: CT Angiography Chest With Intravenous Contrast CLINICAL HISTORY: Reason for exam: Dyspnea. TECHNIQUE: Axial computed tomographic angiography images of the chest with intravenous contrast. Automated exposure control was utilized for the study. A dose lowering technique was utilized adhering to the principles of ALARA. MIP reconstructed images were created and reviewed. COMPARISON: No relevant prior studies available. FINDINGS: Pulmonary arteries: Unremarkable. No pulmonary embolism. Aorta: No acute findings. No thoracic aortic aneurysm. Lungs: Unremarkable. No mass. No consolidation. Pleural space: Unremarkable. No significant effusion. No pneumothorax. Heart: Unremarkable. No cardiomegaly. No significant pericardial effusion. No evidence of RV dysfunction. Bones/joints: No acute fracture. No dislocation. Soft tissues: Unremarkable. Lymph nodes: Unremarkable. No enlarged lymph nodes. IMPRESSION: Normal chest CTA. No pulmonary embolism. Electronically signed by: Nikita Don MD 06/14/24 03:55 AM Hospital Course (1) SOB (shortness of breath): 44-year-old female with past medical significant for thyroiditis, allergic rhinitis, vitamin D deficiency, migraine, generalized anxiety disorder comes with shortness of breath. Patient states shortness been going for last one month associated with exertion. She went to PCP recently. D-dimer and chest x-ray okay. She is status post stress echo. On stress echo there is mild to moderate mitral insufficiency. Patient states since stress test she is getting more short of breath. She cannot take deep breath. When she is sleeping she is waking up with short of breath. Denies any chest pain. No headache. No dizziness. No runny nose or sore throat or cough. No fevers. Appetite is okay. No nausea. No abdominal pain. Normal bowel and bladder movements. Current resting comfortably and hemodynamically stable. Shortness of breath Atypical chest pain due to esophagitis Mitral regurgitation Symptoms unlikely due to mitral regurgitation --CTA:Normal chest CTA. No pulmonary embolism. -- Outpatient stress test on 06/12/2024 negative for ischemic heart disease --ECHO on 06/12/24: Mild to moderate mitral regurgitation. Appreciate cardiology input Needs repeat echo in 1 year Will consider PFTs as outpatient Dysphagia/odynophagia Possibly eosinophilic esophagitis --S/P EGD:Esophageal mucosal changes suspicious for eosinophilic esophagitis. Biopsies were taken with a cold forceps for evaluation of eosinophilic esophagitis. Normal examined duodenum. -- Pathology pending Appreciate GI input Continue Protonix Further management based on biopsy results Hypothyroidism Normal TSH Continue levothyroxine DVT prophylaxis SCDs Disposition Plan to discharge home today Total Time Total Time Spent Total Time Spent (In Minutes): 54 minutes Discharge Plan Discharge Items Patient Disposition: Home - Self-Care Reason For Visit: SOB Discharge Diagnosis: Dysphagia Suspected eosinophilic esophagitis Mitral regurgitation Condition on Discharge: Good Activity: Per Instructions section Exercise/Sports: Gradually increase as tolerated Non-emergency contact: Primary Care Provider and Gas Pipe Layer Call non-emergency contact if: you have any medication questions, your symptoms worsen, your pain is concerning for you and you have a fever Follow-up/Referrals: Charley Mena MD [Primary Care Provider] - Diet: Heart Healthy Addtl Attending Provider Instructions: Follow-up with your primary care physician in 1 week Follow-up with 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 Follow-up with your physician for results and further recommendations. 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 Please call if you have any questions or problems. You can reach a [facility] hospitalist on duty at [facility] 24 hours a day by calling [phone] Pending Studies at Discharge: Yes Studies:: Pathology Stand-Alone Forms: [facility], Smoking Cessation Medications and DC Order Prescriptions: New pantoprazole 40 mg Tablet,Delayed Release (Dr/Ec) 40 mg PO QAM Qty: 30 1RF Continued albuterol sulfate 90 mcg/actuation HFA aerosol inhaler 2 puff inhalation Q4 PRN (Reason: Shortness Of Breath Or Wheezing) levothyroxine [Synthroid] 112 mcg tablet 112 mcg PO DAILYBB Discontinued omeprazole 20 mg capsule,delayed release(DR/EC) 20 mg PO QAM Rx Instructions: take 30 min prior to breakfast Discharge Orders: Discharge Order (Routine); Ordered 06/14/24 Ordered By: Colton Alexandra Admission Data Admit Date/Time: 06/14/24 03:52 Attending Provider: Colton Alexandra Admit Provider: Fernandez Chan Primary Care Provider: Charley Mena Other Providers: Fernandez Chan; Maxime Ayala; Corbni Mills; Robert Hickman; Debbie Carpio; Ariella Steve; Emmy Daniel; Gertrude Ye; Chey Canas; Niels Hollins; Homar Briceno; Mauricio Lyon; Sebastien Rios; Carlene Kahn; Debi Kincaid; Genevieve Jay; Maria Luz Toussaint; Aquiles Mcmillan; Sylvester Rainey; Darwin Monterroso; Kaci Wilson; Ling Saenz Jr; Minh Cruz; Alfa Landa; Jerome Noble; Jamshid Davis; Angela Sweet; Luis Alfredo Farmer I Other Interventions: Discharge Summary Assessment (RN) Last Done: 06/14/24 14:51
[2024-06-14 14:52] VITALS: BP 149/76; RESP 16
--- NOTE | 2024-06-14 14:53 | Anesthesiology Progress Note ---
Date of Service June 14, 2024 Anesthesia Post Procedure Vital Signs Vital Signs: Temp Pulse Pulse Pulse Resp BP BP 06/14/24 14:51 57 L 16 149/76 H 06/14/24 14:36 57 L 20 123/78 06/14/24 14:21 98 H 20 116/79 06/14/24 13:08 36.3 C L 57 L 16 150/86 H 06/14/24 12:23 36.6 C 63 16 142/84 H 06/14/24 08:05 06/14/24 07:35 36.5 C 61 18 133/78 06/14/24 07:09 54 L 06/14/24 05:16 62 06/14/24 05:15 06/14/24 05:03 36.5 C 67 18 145/92 H 06/14/24 04:39 53 L 15 143/82 H 06/14/24 03:00 68 18 138/90 06/14/24 01:08 70 06/14/24 01:06 70 18 06/14/24 01:06 70 18 151/98 H 06/14/24 01:06 06/14/24 00:55 36.4 C L 85 18 164/86 H 06/14/24 00:54 Pulse Ox O2 Del Method 06/14/24 14:51 99 Room Air 06/14/24 14:36 99 Room Air 06/14/24 14:21 96 Room Air 06/14/24 13:08 100 Room Air 06/14/24 12:23 99 Room Air 06/14/24 08:05 Room Air 06/14/24 07:35 98 Room Air 06/14/24 07:09 06/14/24 05:16 06/14/24 05:15 Room Air 06/14/24 05:03 100 Room Air 06/14/24 04:39 99 Room Air 06/14/24 03:00 99 Room Air 06/14/24 01:08 06/14/24 01:06 100 Room Air 06/14/24 01:06 100 Room Air 06/14/24 01:06 100 Room Air 06/14/24 00:55 100 Room Air 06/14/24 00:54 Room Air Pain Intensity Chest: Pain Intensity: 6 Transfer of Care Handoff Completed per policy Notes Mental Status: alert / awake / arousable and participated in evaluation Patient Amnestic to Procedure: Yes Nausea / Vomiting: adequately controlled Pain: adequately controlled Airway Patency, RR, SpO2: stable & adequate BP & HR: stable & adequate Hydration State: stable & adequate Anesthetic Complications: no major complications apparent
[2024-06-14 17:18] VITALS: PULSE 58
== END 2024-06-14 17:18 | disposition home or self-care (01) ==
LOC: ED 00:53 → 2N 00:53